=== PATIENT | female | born 1950 | race Caucasian/White ===

== ENCOUNTER 2017-10-16 10:20 | Emergency (ER) | payer MEDICARE, BC ==
[~2017-10-16] VITALS: Ht 165.1 cm; Wt 68.0 kg
[~2017-10-16 10:20] MED LIST: CALC667T PO; FURO20 PO; LISI10; LORT5TAB PO; LORTA5 PO
[2017-10-16 10:27] VITALS: BP 121/59; PULSE 66; RESP 18; TEMP 98.6; O2SAT 98
[2017-10-16 10:30] VITALS: BP 121/59; PULSE 65; RESP 18; TEMP 98.6; O2SAT 98
--- NOTE | 2017-10-16 10:40 | PD ---
HPI Chief Complaint: Fall Time Seen by Provider: 10:36 Travel History International Travel<30 days: No Contact w/Intl Traveler<30days: No Traveled to known affect area: No History of Present Illness HPI 67-year-old female came to the emergency room brought by her son with history of a fall and head and facial injury. Patient says that she was trying to take off her compression stockings while she was sitting at the edge of the bed. She lost control and tumbled forwards. Her head and face hit the concrete floor. No history of loss of consciousness. There was bleeding from the face. Son called EMS and patient was brought in. She was complaining of some neck pain and a c-collar was put on. Patient says she has past history of cervical disc protrusion and cervical radiculopathy. She usually has some baseline pain but this pain is worse than her usual. Patient is on a number of pain medication and sedatives on a daily basis. She is not on any blood thinners. [facility] Past Medical History Narrative Medical List of her past medical, surgical, social and family history is reviewed from the nursing note. 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) Cardiovascular Problems: Yes (ASCENDING AORTIC ANEURYSM 4.6) COPD: No Diabetes: Yes Endocrine: Yes Hepatitis: No Hiatal Hernia: No Hypertension: Yes Implanted Vascular Access Dvce: Yes Musculoskeletal: Yes (ARTHRITIS) Neurologic: No Psychiatric: No Reproductive: No Respiratory: Yes (HX ASTHMA, TWO EPISODE SINCE 2003) Renal Failure: Yes Sleep Apnea: No Thyroid Disease: No Tetanus Vaccination: Unknown Influenza Vaccination: Yes ?: Not Past Surgical History Abdominal Surgery: Yes (PANCREATIC SURGERY) Body Medical Devices: RIGHT CHEST VAS CATH Cardiac Surgery: No Ear Surgery: No Endocrine Surgery: Yes (CYSTS ON PANCREAS/SPLEENECTOMY) Eye Surgery: No Genitourinary Surgery: No Gynecologic Surgery: Yes (DRAINAGE OF VAGINAL CYST) Neurologic Surgery: Yes (C5-C6 FUSION) Oral Surgery: Yes (ORAL CYST) Pacemaker: No Thoracic Surgery: Yes (VAS CATH) Other Surgery: Yes Social History Alcohol Use: No Tobacco Use: No (QUIT 28 YEARS AGO) Substance Use: No Allergies-Medications (Allergen,Severity, Reaction): Coded Allergies: butorphanol (Unverified Allergy, Severe, "NERVE ENDING ON FIRE", 04/24/17) ketorolac (Unverified Allergy, Severe, "NERVE ON FIRE", 04/24/17) Comments List of her allergies reviewed from the nursing note. Reported Meds & Prescriptions Reported Meds & Active Scripts Active Bacitracin Topical 500 Unit/Gm Oint 1 Applic TOPICAL BID Reported Calcium Acetate 668 Mg Tab 668 Mg PO TID WITH MEALS WITH SNACK WELL Lasix 20 Mg Tab (Furosemide) 20 Mg Tab 40 Mg PO DAILY Lortab 5/500 (Acetaminophen/Hydrocodone Bitart) 5 Mg/500 Mg Tab 1-2 Tab PO Q4HPRN Hydrocodone/Acetaminophen 5 mg/325 mg 1 Tab Tab 1-2 Tab PO Q4HPRN Prinivil 10 mg (Lisinopril) 10 Mg Tab 20 Mg .XX DAILY Narrative Medication List of her home medications reviewed from the nursing note. Review of Systems Except as stated in HPI: all other systems reviewed are Neg Physical Exam Narrative GENERAL: Awake, alert, moderate distress, c-collar SKIN: Focused skin assessment warm/dry. HEAD: Stellate mid forehead laceration that is oozing blood. EYES: Pupils equal and round. No scleral icterus. No injection or drainage. ENT: No nasal bleeding or discharge. Mucous membranes pink and moist. The bridge of the nose has a small laceration. There is some facial swelling. NECK: Trachea midline. No JVD. CARDIOVASCULAR: Regular rate and rhythm. No murmur appreciated. RESPIRATORY: No accessory muscle use. Clear to auscultation. Breath sounds equal bilaterally. GASTROINTESTINAL: Abdomen soft, non-tender, nondistended. Hepatic and splenic margins not palpable. MUSCULOSKELETAL: No obvious deformities. No clubbing. No cyanosis. No edema. NEUROLOGICAL: Awake and alert. No obvious cranial nerve deficits. Motor grossly within normal limits. Normal speech. PSYCHIATRIC: Appropriate mood and affect; insight and judgment normal. Data Data Last Documented VS Orders Orders Ct Brain W/O Iv Contrast(Rout) (10/16/17 ) Ct Cerv Spine W/O Contrast (10/16/17 ) Tetanus/Diphtheria Tox Adult (Tetanus/Di (10/16/17 11:00) Ice / Cold Pack PRN (10/16/17 11:00) Acetaminophen (Tylenol) (10/16/17 11:00) Lidocai-Epi 1%-1:100,000 Inj (Xylocaine- (10/16/17 11:15) Lidocaine Pf 1% Inj (Xylocaine-Mpf 1% In (10/16/17 12:01) Ed Discharge Order (10/16/17 12:20) Lidocaine Pf 1% Inj (Xylocaine-Mpf 1% In (10/16/17 13:00) MDM Medical Decision Making Medical Screen Exam Complete: Yes Emergency Medical Condition: Yes Medical Record Reviewed: Yes Differential Diagnosis Intracranial bleed, nasal bone fracture, facial laceration Narrative Course 11:[address] scan of her head and cervical spine. Patient will be given tetanus shot and Tylenol for the pain. If the CT scan is negative my PA will repair the laceration and patient will be discharged home. 11:[address] scan reports of back and negative for any acute injury. Once the laceration is repaired patient will be discharged home. Please refer to the PAs note regarding the laceration repair. Procedures EKG Prior to Arrival: No Diagnosis Primary Impression: Fall Qualified Codes: W19.XXXA - Unspecified fall, initial encounter Additional Impressions: Facial injury Qualified Codes: S09.93XA - Unspecified injury of face, initial encounter Facial laceration Qualified Codes: S01.81XA - Laceration without foreign body of other part of head, initial encounter Neck strain Qualified Codes: S16.1XXA - Strain of muscle, fascia and tendon at neck level , initial encounter Additional Instructions: Return to the ER if condition worsens or any other new concerns. The stitches need to come out in 7-10 days. Apply the antibiotic ointment until the stitches come out. Return to ER to get the stitches taken out. Return sooner if symptoms worsen or any signs of infection. Med/Other Pt SpecificInfo: Prescription(s) given Scripts Bacitracin Topical (Bacitracin Topical) 500 Unit/Gm Oint 1 APPLIC TOPICAL BID for Infection, #30 GM 0 Refills Prov: Christiane Gramajo MD 10/16/17 Disposition: 01 DISCHARGE HOME Condition: Stable Christiane Gramajo MD Oct 16, 2017 10:40
[2017-10-16] MEDS ORDERED: TETANUS/DIPHTHERIA TOXOID ADULT 0.5 ML VIAL IM ONE (11:00)
[2017-10-16] MEDS ORDERED: ACETAMINOPHEN 325 MG TAB PO ONE (11:00)
[2017-10-16] MEDS ORDERED: LIDOCAINE 1%/EPINEPHrine 1:100,000 SOLN 20 ML VIAL INFIL ONE (11:15)
--- NOTE | 2017-10-16 11:31 | RADRPT ---
EXAM DATE/TIME: 10/16/2017 11:17 [facility] COMPARISON: No previous studies available for comparison. INDICATIONS : Fall RADIATION DOSE: 35.54 CTDIvol (mGy) MEDICAL HISTORY : Ascending aortic aneurysm SURGICAL HISTORY : C5, C6 fusion ENCOUNTER: Initial ACUITY: 1 day PAIN SCALE: 7/10 LOCATION: Bilateral cranial TECHNIQUE: Multiple contiguous axial images were obtained of the head. Using automated exposure control and adj ustment of the mA and/or kV according to patient size, radiation dose was kept as low as reasonably a chievable to obtain optimal diagnostic quality images. DICOM format image data is available electro nically for review and comparison. FINDINGS: There is patchy mild diminished attenuation and deep white matter structures which appears benign. Ba alannah ganglia calcifications on the right. No evidence of intracranial hemorrhage or mass. Nothing to s uggest acute infarction. Extracranial structures are benign and intact. CONCLUSION: No acute intracranial injury Beau Abebe MD on October 16, 2017 at 11:26 Board Certified Radiologist. This report was verified electronically.
--- NOTE | 2017-10-16 11:53 | RADRPT ---
EXAM DATE/TIME: 10/16/2017 11:17 [facility] COMPARISON: No previous studies available for comparison. INDICATIONS : Slipped and fell, complains of neck pain. RADIATION DOSE: 21.42 CTDIvol (mGy) MEDICAL HISTORY : Ascending aortic aneurysm SURGICAL HISTORY : C5, C6 fusion ENCOUNTER: Initial ACUITY: 1 day PAIN SCALE: 7/10 LOCATION: Bilateral neck TECHNIQUE: Volumetric scanning of the cervical spine was performed. Multiplanar reconstructions in the sagittal, coronal and oblique axial planes were performed. Using automated exposure control and adjustment o f the mA and/or kV according to patient size, radiation dose was kept as low as reasonably achievable to obtain optimal diagnostic quality images. DICOM format image data is available electronically f or review and comparison. FINDINGS: There has been previous C5-6 fusion with solid bony fusion present. There is moderate anterolisthesis of C4 relative to C5 on the order of 4-5 mm. There is severe diffuse degenerative change with disc s pace narrowing most significantly C6-7 and to a lesser degree at other levels. There is no evidence o f fracture. No destructive changes are noted. No evidence of paraspinal hematoma At C3-4, moderate asymmetrically right-sided and plate and uncovertebral osteophytic spurring is pres ent with superimposed facet arthropathy determining 2 asymmetric right-sided foraminal stenosis. Johana l appears adequate. At C4-5, spondylolisthesis is present protruding to mild canal stenosis and mild asymmetrically right-sided foraminal stenosis. At C5-6, bony fusion is noted. There is a moderately large right paracentral dorsal bone spur protrud ing into the right lateral recess. Asymmetrically right-sided foraminal stenosis also present. At C6-7, broad undulating dorsal disc protrusion is present, mildly asymmetric to the left with mild canal stenosis and bilateral foraminal stenosis present. CONCLUSION: No acute bony injury in the cervical spine. Prominent degenerative changes and moderate C4-5 spondylo listhesis above previous fusion. Beau Abebe MD on October 16, 2017 at 11:43 Board Certified Radiologist. This report was verified electronically.
[2017-10-16] MEDS ORDERED: BACI500O9 TOPICAL (11:57)
[2017-10-16] MEDS ORDERED: LIDOCAINE HCL 1% PF 30 ML VIAL ONE (12:01)
--- NOTE | 2017-10-16 12:44 | PD ---
Physical Exam Time Seen by Provider: 12:00 Data Data Last Documented VS Vital Signs Date Time Temp Pulse Resp B/P (MAP) Pulse Ox O2 Delivery O2 Flow Rate FiO2 10/16/17 10:30 98.6 65 18 121/59 (79) 98 Room Air Orders Orders Ct Brain W/O Iv Contrast(Rout) (10/16/17 ) Ct Cerv Spine W/O Contrast (10/16/17 ) Tetanus/Diphtheria Tox Adult (Tetanus/Di (10/16/17 11:00) Ice / Cold Pack PRN (10/16/17 11:00) Acetaminophen (Tylenol) (10/16/17 11:00) Lidocai-Epi 1%-1:100,000 Inj (Xylocaine- (10/16/17 11:15) Lidocaine Pf 1% Inj (Xylocaine-Mpf 1% In (10/16/17 12:01) Ed Discharge Order (10/16/17 12:20) MDM Medical Record Reviewed: Yes Supervised Visit with SANDRA: No Narrative Course This patient presents with complex facial laceration was assessed repair. She verbalized consent for laceration repair. Procedures Procedure Narrative LACERATION LOCATION: Forehead LENGTH 3 cm NUMBER OF STITCHES/CHIKIS: 14 REPAIR: The area of the laceration was prepped with Betadine and sterilely draped. The laceration was infiltrated with 1% lidocaine. The wound was copiously irrigated and explored without evidence of foreign body, tendon injury or neurovascular injury. The wound was closed using 6-0 prolene simple interrupted. This was a [single layer repair. A sterile dressing was applied. The patient was advised to keep the dressing clean and dry. Patient tolerated the procedure well. LACERATION LOCATION: nose LENGTH 1 cm NUMBER OF STITCHES/CHIKIS: 2 REPAIR: The area of the laceration was prepped with Betadine and sterilely draped. The laceration was infiltrated with 1% lidocaine. The wound was copiously irrigated and explored without evidence of foreign body, tendon injury or neurovascular injury. The wound was closed using 6-0 prolene simple interrupted. This was a [single layer repair. A sterile dressing was applied. The patient was advised to keep the dressing clean and dry. Patient tolerated the procedure well. Diagnosis Primary Impression: Fall Qualified Codes: W19.XXXA - Unspecified fall, initial encounter Additional Impressions: Facial laceration Qualified Codes: S01.81XA - Laceration without foreign body of other part of head, initial encounter Facial injury Qualified Codes: S09.93XA - Unspecified injury of face, initial encounter Neck strain Qualified Codes: S16.1XXA - Strain of muscle, fascia and tendon at neck level , initial encounter Additional Instruction: Return to the ER if condition worsens or any other new concerns. The stitches need to come out in 7-10 days. Apply the antibiotic ointment until the stitches come out. Return to ER to get the stitches taken out. Return sooner if symptoms worsen or any signs of infection. Scripts Bacitracin Topical (Bacitracin Topical) 500 Unit/Gm Oint 1 APPLIC TOPICAL BID for Infection, #30 GM 0 Refills Prov: Christiane Gramajo MD 10/16/17 Disposition: 01 DISCHARGE HOME Condition: Stable Mickey Izaguirre Oct 16, 2017 12:44
[2017-10-16] MEDS ORDERED: LIDOCAINE HCL 1% PF 30 ML VIAL INFIL ONE (13:00)
== END 2017-10-16 13:46 | disposition home or self-care (01) ==
LOC: NEPE 10:20
DX: S01.81XA Laceration without foreign body of other part of head, initial encounter (principal); S16.1XXA Strain of muscle, fascia and tendon at neck level, initial encounter; W06.XXXA Fall from bed, initial encounter; Y93.89 Activity, other specified; Z23 Encounter for immunization
CPT/HCPCS: 12013; 70450; 72125; 90471; 90714

== ENCOUNTER 2017-10-24 09:53 | Emergency (ER) | payer MEDICARE, BC ==
[~2017-10-24] VITALS: Ht 165.1 cm; Wt 70.0 kg
[~2017-10-24 09:53] MED LIST changes: +BACI500O9 TOPICAL
[2017-10-24 09:55] VITALS: BP 118/59; PULSE 73; RESP 14; TEMP 98.3; O2SAT 97
[2017-10-24] MEDS ORDERED: POLY10O EACH EYE (11:08)
--- NOTE | 2017-10-24 11:12 | PD ---
HPI Chief Complaint: Wound/Suture/Staple Re-Check Time Seen by Provider: 11:07 Travel History International Travel<30 days: No Contact w/Intl Traveler<30days: No Traveled to known affect area: No History of Present Illness HPI This is a 67-year-old female who presents for suture removal. The patient was seen here in October 16 with facial lacerations which were repaired with sutures. She has no complaints in regards to the wounds. She has had some itchiness and drainage from both eyes for the past few days. Symptoms are mild , no aggravating factors. She thought that maybe she got some of the ointment into the eyes but she has been conscientious to avoid that and so she does not believe that that is the issue. She endorses little bit of crusting in the mornings in both eyes. She does not wear contacts. Denies any cough, congestion, sore throat. No other complaints. PFSH Past Medical History 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) Cardiovascular Problems: Yes (ASCENDING AORTIC ANEURYSM 4.6) COPD: No Diabetes: Yes Endocrine: Yes Hepatitis: No Hiatal Hernia: No Hypertension: Yes Implanted Vascular Access Dvce: Yes Musculoskeletal: Yes (ARTHRITIS) Neurologic: No Psychiatric: No Reproductive: No Respiratory: Yes (HX ASTHMA, TWO EPISODE SINCE 2003) Renal Failure: Yes Sleep Apnea: No Thyroid Disease: No ?: Not Past Surgical History Abdominal Surgery: Yes (PANCREATIC SURGERY) Body Medical Devices: RIGHT CHEST VAS CATH Cardiac Surgery: No Ear Surgery: No Endocrine Surgery: Yes (CYSTS ON PANCREAS/SPLEENECTOMY) Eye Surgery: No Genitourinary Surgery: No Gynecologic Surgery: Yes (DRAINAGE OF VAGINAL CYST) Neurologic Surgery: Yes (C5-C6 FUSION) Oral Surgery: Yes (ORAL CYST) Pacemaker: No Thoracic Surgery: Yes (VAS CATH) Other Surgery: Yes Social History Alcohol Use: No Tobacco Use: No (QUIT 28 YEARS AGO) Substance Use: No Allergies-Medications (Allergen,Severity, Reaction): Coded Allergies: butorphanol (Unverified Allergy, Severe, "NERVE ENDING ON FIRE", 04/24/17) ketorolac (Unverified Allergy, Severe, "NERVE ON FIRE", 04/24/17) Reported Meds & Prescriptions Reported Meds & Active Scripts Active Polytrim Opth Drops (Polymyxin/Trimethoprim Sulfate) 10,000-0.1 Unit/Ml-% Soln 1 Drop EACH EYE Q6HR 7 Days Bacitracin Topical 500 Unit/Gm Oint 1 Applic TOPICAL BID Reported Calcium Acetate 668 Mg Tab 668 Mg PO TID WITH MEALS WITH SNACK WELL Lasix 20 Mg Tab (Furosemide) 20 Mg Tab 40 Mg PO DAILY Lortab 5/500 (Acetaminophen/Hydrocodone Bitart) 5 Mg/500 Mg Tab 1-2 Tab PO Q4HPRN Hydrocodone/Acetaminophen 5 mg/325 mg 1 Tab Tab 1-2 Tab PO Q4HPRN Prinivil 10 mg (Lisinopril) 10 Mg Tab 20 Mg .XX DAILY Review of Systems General / Constitutional: No: Fever, Chills Eyes: Positive: Tearing, Other (itchiness) HENT: No: Rhinitis Respiratory: No: Cough Skin: Positive Other (positive for laceration, sutures) Physical Exam Narrative GENERAL: Well-developed well-nourished female in no acute distress SKIN: Warm and dry. Well healing forehead and nasal lacerations. No wound dehiscence or erythema. HEAD: Atraumatic. Normocephalic. EYES: Pupils equal and round mild sconjunctival injection noted bilaterally. ENT: No nasal bleeding or discharge. Mucous membranes pink and moist. NECK: Trachea midline. No JVD. Data Data Last Documented VS Vital Signs Date Time Temp Pulse Resp B/P (MAP) Pulse Ox O2 Delivery O2 Flow Rate FiO2 10/24/17 09:55 98.3 73 14 118/59 (78) 97 MDM Medical Decision Making Medical Screen Exam Complete: Yes Emergency Medical Condition: Yes Medical Record Reviewed: Yes Differential Diagnosis Suture removal, wound dehiscence, infected wound Narrative Course The sutures were removed without incident. The patient will be discharged with Polytrim for conjunctivitis. Diagnosis Primary Impression: Visit for suture removal Additional Impression: Conjunctivitis Additional Instructions: Medication as prescribed. Follow-up with primary care physician as needed. Med/Other Pt SpecificInfo: Prescription(s) given Scripts Polymyxin B-Trimethoprim Opth Drops (Polytrim Opth Drops) 10,000-0.1 Unit/Ml-% Soln 1 DROP EACH EYE Q6HR for Mgmt Bacterial Infection for 7 Days, #1 BOTTLE 0 Refills Prov: Ansley Oroczo MD 10/24/17 Disposition: 01 DISCHARGE HOME Condition: Stable Mickey Izaguirre Oct 24, 2017 11:12
== END 2017-10-24 11:22 | disposition home or self-care (01) ==
LOC: NEPK 09:53
DX: Z48.02 Encounter for removal of sutures (principal); H10.9 Unspecified conjunctivitis; J45.909 Unspecified asthma, uncomplicated; M19.90 Unspecified osteoarthritis, unspecified site; I12.9 Hypertensive chronic kidney disease with stage 1 through stage 4 chronic kidney disease, or unspecified chronic kidney disease; E11.22 Type 2 diabetes mellitus with diabetic chronic kidney disease; N18.9 Chronic kidney disease, unspecified; Z87.891 Personal history of nicotine dependence; Z79.899 Other long term (current) drug therapy
CPT/HCPCS: 99281

== ENCOUNTER 2017-11-05 09:43 | Emergency (ER) | payer MEDICARE, BC ==
[~2017-11-05] VITALS: Ht 165.1 cm; Wt 66.0 kg
[~2017-11-05 09:43] MED LIST changes: +POLY10O EACH EYE
[2017-11-05 10:07] VITALS: BP 149/72; PULSE 85; RESP 18; TEMP 100
[2017-11-05] MEDS ORDERED: CALC1CAP PO (10:32)
[2017-11-05] MEDS ORDERED: FURO1TAB62 PO (10:32)
[2017-11-05] MEDS ORDERED: KETO0.02 EACH EYE (10:42)
[2017-11-05] MEDS ORDERED: ERYTOIN10 EACH EYE (10:42)
--- NOTE | 2017-11-05 10:55 | PD ---
HPI Chief Complaint: Eye Problems/Injury Time Seen by Provider: 10:24 Travel History International Travel<30 days: No Contact w/Intl Traveler<30days: No Traveled to known affect area: No History of Present Illness HPI 67-year-old female presents to the emergency room for evaluation of bilateral eye itchiness, drainage, crustiness, grittiness, and irritation for the past 2 weeks. Symptoms started shortly after she fell and sustained lacerations to her forehead that were repaired in the ED. There was no evidence of infection in the wounds when she came to have the sutures removed. States she occasionally wakes up with her eyes crusted shut. States she has occasional blurry vision that clears when she rubs the drainage out of her eyes. She has been trying srde-oyy-gkhqnie pinkeye drops that seem to be helping better than the antibiotic drops that she was taking. She denies any significant eye pain, headaches, photophobia, or fevers. She does report occasional chills. She has not been able to get in to see her primary care physician. She does not wear contacts. PFSH Past Medical History 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) Cardiovascular Problems: Yes (ASCENDING AORTIC ANEURYSM 4.6) COPD: No Diabetes: Yes (use to be ) Endocrine: Yes Hepatitis: No Hiatal Hernia: No Hypertension: Yes Implanted Vascular Access Dvce: Yes Musculoskeletal: Yes (ARTHRITIS) Neurologic: No Psychiatric: No Reproductive: No Respiratory: Yes (HX ASTHMA, TWO EPISODE SINCE 2003) Renal Failure: Yes Sleep Apnea: No Thyroid Disease: No ?: Not Past Surgical History Abdominal Surgery: Yes (PANCREATIC SURGERY) Body Medical Devices: RIGHT CHEST VAS CATH Cardiac Surgery: No Ear Surgery: No Endocrine Surgery: Yes (CYSTS ON PANCREAS/SPLEENECTOMY) Eye Surgery: No Genitourinary Surgery: No Gynecologic Surgery: Yes (DRAINAGE OF VAGINAL CYST) Neurologic Surgery: Yes (C5-C6 FUSION) Oral Surgery: Yes (ORAL CYST) Pacemaker: No Thoracic Surgery: Yes (VAS CATH) Other Surgery: Yes Social History Alcohol Use: No Tobacco Use: No (QUIT 28 YEARS AGO) Substance Use: No Allergies-Medications (Allergen,Severity, Reaction): Coded Allergies: butorphanol (Unverified Allergy, Severe, "NERVE ENDING ON FIRE", 11/05/17) ketorolac (Unverified Allergy, Severe, "NERVE ON FIRE", 11/05/17) Reported Meds & Prescriptions Reported Meds & Active Scripts Active ZyrTEC Itchy Eye Opth Drops (Ketotifen Opth Drops) 0.025% Drops 1 Drop EACH EYE BID PRN Erythromycin Opth Oint 5 Mg/Gm Oint 1 Applic EACH EYE QID Reported Calcium Acetate (Phosphate Binder) 667 Mg Cap 667 Mg PO TID Lasix (Furosemide) 20 Mg Tab 20 Mg PO TID Review of Systems Except as stated in HPI: all other systems reviewed are Neg Physical Exam Narrative GENERAL: Well-nourished, well-developed female no acute distress. Afebrile. Ambulatory. SKIN: Focused skin assessment warm/dry. HEAD: Normocephalic. EYES: PERRL, EOMI without pain, no discharge. No scleral icterus. There is very mild injection of bilateral eyes without chemosis. No periorbital edema or erythema. Visual acuity is 20/40 in the left and 20/25 in the right. Fluorescein staining reveals 1 mm superficial corneal abrasion to the left eye at the 3 o'clock position. Negative Meagan sign. No foreign body. No photophobia. NECK: Supple, trachea midline. No JVD or lymphadenopathy. CARDIOVASCULAR: Regular rate and rhythm without murmurs, gallops, or rubs. RESPIRATORY: Breath sounds equal bilaterally. No accessory muscle use. PSYCHIATRIC: No delusional thought processes. No hallucinations. Data Data Last Documented VS Vital Signs Date Time Temp Pulse Resp B/P (MAP) Pulse Ox O2 Delivery O2 Flow Rate FiO2 11/05/17 10:07 100.0 85 18 149/72 (97) [facility] Medical Decision Making Medical Screen Exam Complete: Yes Emergency Medical Condition: Yes Medical Record Reviewed: Yes Differential Diagnosis Conjunctivitis, viral conjunctivitis, allergic conjunctivitis Narrative Course 67-year-old female presents to the emergency room for evaluation of bilateral eye redness, drainage, grittiness, and irritation for the past 2 weeks. Patient came for same symptoms about 1.5 weeks ago and was discharged with eyedrops that have not been helping. Denies any significant headache, changes in visual acuity, or photophobia. She has been using ayyl-jub-ilowbxk pinkeye drops that seems to be helping more than her prescription eyedrops. Physical exam reveals PERRL, EOMI without pain, no discharge. No scleral icterus. There is very mild injection of bilateral eyes without chemosis. No periorbital edema or erythema. Visual acuity is 20/40 in the left and 20/25 in the right. Fluorescein staining reveals 1 mm superficial corneal abrasion to the left eye at the 3 o'clock position. Negative Meagan sign. No foreign body. No photophobia. I suspect the abrasion is due to patient rubbing her eyes so much. She is well appearing overall. Will be treated with a different prescription antibiotic though I suspect there is either viral or allergic component given duration and mildness of symptoms. Patient also has eye makeup on which may be causing reinfection. She was told to throw away her eye makeup and not wear anymore until infection resolves. Patient was told to follow-up with pyrometallurgical engineer if they persist or return for worsening symptoms. She understands and agrees to plan. Diagnosis Primary Impression: Conjunctivitis of both eyes Qualified Codes: H10.33 - Unspecified acute conjunctivitis, bilateral Referrals: Tami Fabian MD Primary Care Physician Additional Instructions: Rest and drink plenty of fluids. Apply eyedrops as needed for eye itchiness. Apply ointment as directed. Follow-up with pyrometallurgical engineer. Return to the emergency room for worsening symptoms. Med/Other Pt SpecificInfo: Prescription(s) given Scripts Ketotifen Opth Drops (ZyrTEC Itchy Eye Opth Drops) 0.025% Drops 1 DROP EACH EYE BID Y for ALLERGIES, #1 BOTTLE 0 Refills Prov: Oli Roman MD 11/05/17 Erythromycin Opth Oint (Erythromycin Opth Oint) 5 Mg/Gm Oint 1 APPLIC EACH EYE QID for Infection, #1 TUBE 0 Refills Prov: Oli Roman MD 11/05/17 Disposition: DISCHARGE HOME Condition: Stable Shiloh Tierney Nov 05, 2017 10:55
== END 2017-11-05 12:08 | disposition home or self-care (01) ==
LOC: NEPD 09:43
DX: H10.33 Unspecified acute conjunctivitis, bilateral (principal)
CPT/HCPCS: 99283

== ENCOUNTER 2018-08-03 19:21 | Inpatient (IN) ==
[2018-08-03] MEDS ORDERED: Sodium Chlor 0.9% Inj 500 ML IV.SIG SCH (20:00)
--- NOTE | 2018-08-03 20:13 | ED ---
HPI General Chief complaint: Weakness Stated complaint: Weakness Time Seen by Provider: 08/03/18 19:26 Source: patient and EMS Mode of arrival: EMS Limitations: no limitations History of Present Illness HPI narrative: 68-year-old female with end-stage kidney disease, hemodialysis dependent was brought in by EMS from her home. As per EMS the son gave history since he called 911. As per him patient has been altered mental status and confused. She has been leaving the house and falling frequently. She has missed past several dialysis appointments. Her last dialysis was more than 1 week ago. Patient told me that her bushel worker is Dr. Aguilar. Patient is answering questions however and is oriented in time place and person. There is also a concern by her son of prescription narcotic abuse. Patient was tachycardic upon arrival. She appears very disheveled and unkempt. Her mouth is very dry which is preventing her to talk normal. Patient says that she has not eaten much for past few days. As per the paramedics the condition of her apartment was very nice and clean. Also the patient tells me that at this point her bushel worker told her that he will not dialyze her in the clinic but has to be dialyzed in the hospital. She has chronic joint pains from arthritis especially of her right knee. Patient says that her right knee needs to be replaced per the orthopedist has told her that she is a high risk for infection. Related Data Home Medications Medication Instructions Recorded Confirmed calcium acetate mg PO TID 05/06/18 dextroamphetamine-amphetamine mg PO BID 05/06/18 [Adderall] furosemide [Lasix] mg PO DAILY 05/06/18 morphine [MorphaBond ER] 30 mg PO Q12H 05/06/18 05/06/18 oxycodone-acetaminophen [Percocet] tab PO Q6H PRN 05/06/18 escitalopram oxalate [Lexapro] mg PO DAILY 05/30/18 Allergies Allergy/AdvReac Type Severity Reaction Status Date / Time butorphanol Allergy Severe "NERVE Verified 05/30/18 10:33 ENDING ON FIRE" ketorolac Allergy Severe "NERVE ON Verified 05/30/18 10:33 FIRE" Review of Systems ROS: all other systems reviewed are negative [facility] Medical History Medical History Acute carpal tunnel syndrome (Acute) Arthritis (Acute) Diabetes (Acute) ESRD (end stage renal disease) (Acute) MRSA (methicillin resistant staph aureus) culture positive (Acute) Pseudomonas infection (Acute) Renal dialysis status (Acute) Social History Social History Substance History: No History of Abuse Second Hand Smoke Exposure: No Smoking Status: Former smoker Tobacco Type: Cigarettes How Often Do You Have a Drink Containing Alcohol: Never Immunization History Tetanus Immunization: >5 Years Exam Narrative Exam Narrative: GENERAL: Awake, alert, disheveled, unkempt, poor hygiene, moderate distress SKIN: Focused skin assessment warm/dry. Pale, poor skin hygiene, multiple abrasions of various stages of her left upper and left lower extremities HEAD: Atraumatic. Normocephalic. EYES: Pupils equal and round. No scleral icterus. No injection or drainage. ENT: No nasal bleeding or discharge. Dry mucous membrane, coated tongue NECK: Trachea midline. No JVD. CARDIOVASCULAR: Regular rate and rhythm. Tachycardia. No murmur appreciated. RESPIRATORY: No accessory muscle use. Clear to auscultation. Breath sounds equal bilaterally. GASTROINTESTINAL: Abdomen soft, non-tender, nondistended. Hepatic and splenic margins not palpable. MUSCULOSKELETAL: No obvious deformities. No clubbing. No cyanosis. No edema. Right knee swollen from chronic arthritis NEUROLOGICAL: Awake and alert. No obvious cranial nerve deficits. Motor grossly within normal limits. Normal speech. PSYCHIATRIC: Appropriate mood and affect; insight and judgment normal. Course Initial Documented Vital Signs Pulse Rate 116 H 08/03/18 19:26 Respiratory Rate 20 08/03/18 19:26 Blood Pressure 146/74 H 08/03/18 19:26 Pulse Oximetry 95 08/03/18 19:26 Last Documented Vital Signs Pulse Rate 118 H 08/03/18 19:33 Respiratory Rate 20 08/03/18 19:33 Blood Pressure 146/74 H 08/03/18 19:33 Pulse Oximetry 96 08/03/18 20:07 Critical Care Time Critical Care Time: Yes Total Critical Care Time: 45 Attestation: Aggregate critical care time was 45 minutes. Time to perform other separately billable procedures was not included in the critical care time. My time did not include minutes spent treating any other patients simultaneously or on activities that did not directly contribute to the patient's treatment. The services I provided to this patient were to treat and/or prevent clinically significant deterioration that could result in: Hyperkalemia, hyperkalemia correction, emergent dialysis, rhabdomyolysis I provided critical care services requiring my management, as noted below: Chart data review, documentation time, medication orders and management, vital sign assessments/reviewing monitor data, ordering and reviewing lab tests, ordering and interpreting/reviewing x-rays and diagnostic studies, care of the patient and discussion of the patient with the admitting physicians. Medical Decision Making MDM Narrative Medical decision making narrative: 8:12 PM patient is getting IV fluid bolus of 500 mL. Awaiting for blood test results, UA and chest x-ray. Have ordered a head CT as well. Patient will require admission. 9:38 PM blood test results are back and patient is acidotic and has hyperkalemia. I discussed the case with her bushel worker Dr. Aguilar who will come in to dialyze the patient. He recommended the patient to be admitted to the unit. I discussed the case with the hospitalist was accepted the patient. I started her on medications for hyperkalemia including sodium bicarb, calcium carbonate, insulin and D50. P.o. Kayexalate has been ordered as well. As per Dr. Aguilar patient has been very noncompliant with her dialysis and he is planning on discharging her from his service. She is getting IV fluid for the rhabdomyolysis. Lab Data Result diagrams: 08/03/18 19:50 08/03/18 19:50 Lab Results 08/03/18 08/03/18 08/03/18 Range/Units 19:50 19:50 19:50 WBC 9.0 (4.0-11.0) th/mm3 RBC 3.13 L (4.00-5.30) mil/mm3 Hgb 10.7 L (11.6-15.3) gm/dL Hct 32.2 L (35.0-46.0) % MCV 102.9 H (80.0-100.0) fL MCH 34.1 H (27.0-34.0) pg MCHC 33.2 (32.0-36.0) % RDW 14.7 (11.6-17.2) % Plt Count 242 (150-450) th/mm3 MPV 9.0 (7.0-11.0) fL Neut % (Auto) 73.8 H (16.0-70.0) % Lymph % (Auto) 13.1 (9.0-44.0) % [place] % (Auto) 12.5 H (0.0-8.0) % Eos % (Auto) 0.1 (0.0-4.0) % Baso % (Auto) 0.5 (0.0-2.0) % Neut # (Auto) 6.6 (1.8-7.7) th/mm3 Lymph # (Auto) 1.2 (1.0-4.8) th/mm3 [place] # (Auto) 1.1 H (0.0-0.9) th/mm3 Eos # (Auto) 0.0 (0.0-0.4) th/mm3 Baso # (Auto) 0.0 (0.0-0.2) th/mm3 WBC Differential . Differential Comment Auto diff final Sodium 135 L (136-145) meq/L Potassium 6.1 H (3.5-5.1) meq/L Chloride 100 (98-107) meq/L Carbon Dioxide 13.3 L (21.0-32.0) meq/L Anion Gap 22 H (5-15) meq/L BUN 104 H (7-18) mg/dL Creatinine 12.97 H* (0.50-1.00) mg/dL Estimated GFR 3 L (>89) mL/min Random Glucose 109 H (74-106) mg/dL Lactic Acid (0.4-2.0) mmol/L Calcium 8.4 L (8.5-10.1) mg/dL Magnesium 2.6 H (1.5-2.5) mg/dL Total Bilirubin 0.8 (0.2-1.0) mg/dL AST 173 H (15-37) U/L ALT 59 H (10-53) U/L Alkaline Phosphatase 95 (45-117) U/L Total Creatine Kinase Cancelled 7960 H CK-MB (CK-2) 77.4 H (0.5-3.6) ng/mL CK-MB (CK-2) % 1.0 (0.0-4.0) % Troponin I Cancelled 0.32 H Total Protein 8.5 H (6.4-8.2) g/dL Albumin 3.6 (3.4-5.0) g/dL Urine Color (Yellw/Straw) Urine Clarity (Clear) Urine pH (5.0-8.5) Ur Specific [place] (1.002-1.035) Urine Protein (Neg-Trace) mg/dL Urine Glucose (UA) (Negative) mg/dL Urine Ketones (Negative) mg/dL Urine Occult Blood (Negative) Urine Nitrate (Negative) Urine Bilirubin (Negative) Urine Urobilinogen (Less than 2) mg/dL Ur Leukocyte Esterase (Negative) Urine RBC (0-3) /hpf Urine WBC (0-5) /hpf Urine Bacteria (None) /hpf Micro UA Comment Ur Microscopic Review Urine Culture Comments 08/03/18 08/03/18 Range/Units 19:50 21:15 WBC (4.0-11.0) th/mm3 RBC (4.00-5.30) mil/mm3 Hgb (11.6-15.3) gm/dL Hct (35.0-46.0) % MCV (80.0-100.0) fL MCH (27.0-34.0) pg MCHC (32.0-36.0) % RDW (11.6-17.2) % Plt Count (150-450) th/mm3 MPV (7.0-11.0) fL Neut % (Auto) (16.0-70.0) % Lymph % (Auto) (9.0-44.0) % [place] % (Auto) (0.0-8.0) % Eos % (Auto) (0.0-4.0) % Baso % (Auto) (0.0-2.0) % Neut # (Auto) (1.8-7.7) th/mm3 Lymph # (Auto) (1.0-4.8) th/mm3 [place] # (Auto) (0.0-0.9) th/mm3 Eos # (Auto) (0.0-0.4) th/mm3 Baso # (Auto) (0.0-0.2) th/mm3 WBC Differential Differential Comment Sodium (136-145) meq/L Potassium (3.5-5.1) meq/L Chloride (98-107) meq/L Carbon Dioxide (21.0-32.0) meq/L Anion Gap (5-15) meq/L BUN (7-18) mg/dL Creatinine (0.50-1.00) mg/dL Estimated GFR (>89) mL/min Random Glucose (74-106) mg/dL Lactic Acid 1.7 (0.4-2.0) mmol/L Calcium (8.5-10.1) mg/dL Magnesium (1.5-2.5) mg/dL Total Bilirubin (0.2-1.0) mg/dL AST (15-37) U/L ALT (10-53) U/L Alkaline Phosphatase (45-117) U/L Total Creatine Kinase CK-MB (CK-2) (0.5-3.6) ng/mL CK-MB (CK-2) % (0.0-4.0) % Troponin I Total Protein (6.4-8.2) g/dL Albumin (3.4-5.0) g/dL Urine Color Yellow (Yellw/Straw) Urine Clarity Clear (Clear) Urine pH 5.0 (5.0-8.5) Ur Specific [place] 1.011 (1.002-1.035) Urine Protein 100 H (Neg-Trace) mg/dL Urine Glucose (UA) Negative (Negative) mg/dL Urine Ketones Negative (Negative) mg/dL Urine Occult Blood Large H (Negative) Urine Nitrate Negative (Negative) Urine Bilirubin Negative (Negative) Urine Urobilinogen Less than 2 (Less than 2) mg/dL Ur Leukocyte Esterase Negative (Negative) Urine RBC 9 H (0-3) /hpf Urine WBC 7 H (0-5) /hpf Urine Bacteria Few H (None) /hpf Micro UA Comment Cath-culture ind Ur Microscopic Review Not Reportable Urine Culture Comments Cath-cult indicated Imaging Data Radiologist's impression: Chest X-Ray 08/03/18 19:39 CONCLUSION: No evidence of acute cardiopulmonary disease. Head CT 08/03/18 19:41 CONCLUSION: 1. No acute intracranial abnormality demonstrated. 2. Chronic white matter changes are again seen. . ECG Data Attestation: I personally reviewed and interpreted this ECG as follows: Interpretation: Twelve-lead EKG was reviewed by me. Normal sinus rhythm, normal axis, tachycardia, nonspecific ST-T wave changes. Heart rate of 113 bpm per Discharge Plan Discharge Disposition Patient Disposition: 30 Still Patient Physicians Team ED Provider: Christiane Gramajo Primary Care Provider: Viri Clark Rxs /Orders / Referrals /Forms Prescriptions: No Action furosemide [Lasix] 20 mg Tablet PO DAILY RF: 0 calcium acetate 667 mg Capsule PO TID RF: 0 oxycodone-acetaminophen [Percocet] 10-325 mg Tablet PO Q6H PRN (Reason: Pain) RF: 0 dextroamphetamine-amphetamine [Adderall] 5 mg Tablet PO BID RF: 0 morphine [MorphaBond ER] 30 mg Tablet,Oral Only,Ext.Rel.12 Hr 30 mg PO Q12H RF: 0 escitalopram oxalate [Lexapro] 10 mg Tablet PO DAILY RF: 0 Discharge Interventions Interventions: Vital Signs Last Done: 08/03/18 19:33 Status ED Status: With Doctor
[2018-08-03 20:23] LABS: Baso % (Auto) 0.5 % (0.0-2.0); Eos % (Auto) 0.1 % (0.0-4.0); Hematocrit 32.2 % (35.0-46.0); Hemoglobin 10.7 gm/dL (11.6-15.3); Lymph # (Auto) 1.2 th/mm3 (1.0-4.8); Lymph % (Auto) 13.1 % (9.0-44.0); Mean Corpuscular HGB Conc 33.2 % (32.0-36.0); Mean Corpuscular Hemoglobin 34.1 pg (27.0-34.0); Mean Corpuscular Volume 102.9 fL (80.0-100.0); Mono # (Auto) 1.1 th/mm3 (0.0-0.9); Mono % (Auto) 12.5 % (0.0-8.0); Neut # (Auto) 6.6 th/mm3 (1.8-7.7); Neut % (Auto) 73.8 % (16.0-70.0); Platelet Count 242 th/mm3 (150-450); Red Blood Count 3.13 mil/mm3 (4.00-5.30); Red Cell Distribution Width 14.7 % (11.6-17.2)
--- NOTE | 2018-08-03 20:23 | CT ---
EXAM DATE: 08/03/2018 8:20 PM EST AGE/SEX: 68 years / Female INDICATIONS: Altered mental status and multiple falls. CLINICAL DATA: This is the patient's initial encounter. Patient reports that signs and symptoms have been present for 1 day and indicates a pain score of 4/10. MEDICAL/SURGICAL HISTORY: Diabetes. None. RADIATION DOSE: 56.35 CTDI (mGy) COMPARISON: [facility] [place], CT HEAD W/O CONTRAST, 05/06/2018. . TECHNIQUE: CT of the head without contrast. Using automated exposure control and adjustment of the mA and/or kV according to patient size, radiation dose was kept as low as reasonably achievable to ob tain optimal diagnostic quality images. DICOM format image data is available electronically for revi ew and comparison. FINDINGS: Cerebrum: The ventricles are normal for age. No evidence of midline shift, mass lesion, hemorrhage or acute infarction. No extraaxial fluid collections are seen. Chronic low-attenuation seen in the p eriventricular white matter. Posterior Fossa: The cerebellum and brainstem are intact. The 4th ventricle is midline. The cerebe llopontine angle is unremarkable. Extracranial: The visualized portion of the orbits is intact. Skull: The calvaria is intact. No evidence of skull fracture. CONCLUSION: 1. No acute intracranial abnormality demonstrated. 2. Chronic white matter changes are again seen. . Electronically signed by: Beau Galicia MD 08/03/2018 8:22 PM EST
--- NOTE | 2018-08-03 20:52 | XR ---
EXAM DATE: 08/03/2018 8:43 PM EST AGE/SEX: 68 years / Female INDICATIONS: Fever CLINICAL DATA: This is the patient's initial encounter. Patient reports that signs and symptoms have been present for 1 day and indicates a pain score of 0/10. MEDICAL/SURGICAL HISTORY: Diabetes mellitus type II. None. COMPARISON: No prior exams available for comparison. FINDINGS: A single AP view of the chest demonstrates the lungs to be symmetrically aerated without evidence of mass, infiltrate or effusion. The cardiomediastinal contours are unremarkable. Osseous structures a re intact. CONCLUSION: No evidence of acute cardiopulmonary disease. Electronically signed by: Beau Galicia MD 08/03/2018 8:51 PM EST
[2018-08-03 21:01] LABS: Albumin 3.6 g/dL (3.4-5.0); Anion Gap 22 meq/L (5-15); Aspartate Aminotransferase 173 U/L (15-37); Blood Urea Nitrogen 104 mg/dL (7-18); Calcium 8.4 mg/dL (8.5-10.1); Carbon Dioxide 13.3 meq/L (21.0-32.0); Chloride 100 meq/L (98-107); Glomerular Filtration Rate 3 mL/min (>89); Glucose,Random 109 mg/dL (74-106); Magnesium 2.6 mg/dL (1.5-2.5); Potassium 6.1 meq/L (3.5-5.1); Sodium 135 meq/L (136-145)
[2018-08-03 21:10] LABS: Alanine Aminotransferase 59 U/L (10-53); Alkaline Phosphatase 95 U/L (45-117); Creatine Kinase 7960 U/L (26-192); Total Protein 8.5 g/dL (6.4-8.2); Troponin I 0.32 ng/mL (0.02-0.05)
[2018-08-03] MEDS ORDERED: Dextrose 50% in Water 50 ML Vial IV.PUSH ONE (21:13)
[2018-08-03] MEDS ORDERED: Calcium Chloride Inj 1 GM/10 ML Syringe IV.PUSH ONE (21:13)
[2018-08-03] MEDS ORDERED: Sodium Bicarbonate 8.4% Inj 50 MEQ/50 ML Syringe IV.PUSH ONE (21:13)
[2018-08-03] MEDS ORDERED: Sodium Polystyrene Sulfonate/Sorbitol Liq 15 GM/60 ML UDC PO ONE (21:16)
[2018-08-03 21:23] LABS: Creatine Kinase MB 77.4 ng/mL (0.5-3.6)
[2018-08-03] MEDS ORDERED: Sod Chloride 0.9% Inj 1,000 ML IV.SIG SCH (21:30)
[2018-08-03 21:34] LABS: Bacteria,Urine Few /hpf; Bilirubin,Urine Negative (Negative); Clarity,Urine Clear (Clear); Color,Urine Yellow (Yellw/Straw); Glucose,Urine (UA) Negative (Negative); Leukocyte Esterase,Urine Negative (Negative); Nitrite,Urine Negative (Negative); Specific Gravity,Urine 1.011 (1.002-1.035)
[2018-08-03] MEDS ORDERED: Albumin Human 25% Inj 100 ML IV.SIG PRN (21:46)
[2018-08-03] MEDS ORDERED: Sod Chloride 0.9% Inj 1,000 ML IV.CONT PRN (21:46)
[2018-08-03] MEDS ORDERED: Gelatin 12 MM/7 MM Topical Foam TOPICAL PRN (21:46)
[2018-08-03] MEDS ORDERED: Heparin 10,000 UNITS/10 ML Vial (for IV use) OTHER PRN (21:46)
[2018-08-03] MEDS ORDERED: Sod Chloride 0.9% Inj 1,000 ML OTHER PRN ×2 (21:46)
[2018-08-03] MEDS ORDERED: Bisacodyl 10 MG Supp RECTAL PRN (21:49)
[2018-08-03] MEDS ORDERED: Acetaminophen 325 MG Tablet PO PRN (21:49)
--- NOTE | 2018-08-03 21:51 | P.HPIM ---
History of Present Illness Primary Care Physician: Viri Clark MD History of Present Illness: This is a 68-year-old female with a PMH of HTN, ESRD on HD M/W/ and Narcotic Dependence who was brought to the ER by EMS for AMS. Per report, Son called EMS due to worsening mental status and recurrent falls, w/ concern for overmedication of her prescribed narcotics. Pt confused, but able to provide some history. Tells me she follows w/ Dr. Aguilar as outpatient, but has missed last 5 dialysis sessions because "I fell asleep". Denies any complaints at this time except for pain "all over", requesting her home pain medications. On arrival, BP 146/74, HR 118, O2 sat 96% on RA. CBC essentially unremarkable. K + 6.1. Creatinine 12.97. CPK 7960. Troponin 0 0.32. UA negative for UTI. CXR with no acute findings. CT Head with no acute findings. Dr. Aguilar contacted by ER physician, plan is for emergent dialysis this evening. - Diagnosis (1) Encephalopathy (2) ESRD (end stage renal disease) on dialysis (3) Hyperkalemia (4) Rhabdomyolysis (5) Elevated troponin (6) Narcotic dependence Review of Systems PAST FAMILY HISTORY: Unknown All other systems reviewed negative except as stated in HPI PMFSH - History History Provided By: Patient - Medical History Medical History: Medical History (Last Reviewed 08/03/18 @ 20:10 by Christiane Gramajo MD) Acute carpal tunnel syndrome Arthritis Diabetes ESRD (end stage renal disease) MRSA (methicillin resistant staph aureus) culture positive Pseudomonas infection Renal dialysis status - Tobacco History Second Hand Smoke Exposure: No Tobacco Use In Past 30 Days: No Smoking Status: Former smoker Tobacco Type: Cigarettes - Alcohol History How Often Do You Have a Drink Containing Alcohol: Never - Substance Use History Substance History: No History of Abuse - Immunization History Tetanus Immunization: >5 Years Medications and Allergies Active Medications: Active Medications Chlorhexidine Gluconate (Chlorhexidine 2% Cloth) 3 pack TOPICAL DAILY@0400 [facility] Stop: 08/09/18 03:59 Chlorhexidine Gluconate (Chlorhexidine 2% Cloth) 3 pack TOPICAL DAILY@0400 PRN PRN Reason: Extra cloth needed Stop: 08/09/18 03:59 Sodium Chloride (Ns Inj) 1,000 mls @ 1,000 mls/hr IV.SIG BOLUS PILO Stop: 08/03/18 22:29 Allergies Allergy/AdvReac Type Severity Reaction Status Date / Time butorphanol Allergy Severe "NERVE Verified 05/30/18 10:33 ENDING ON FIRE" ketorolac Allergy Severe "NERVE ON Verified 05/30/18 10:33 FIRE" Home Medications Medication Instructions Recorded Confirmed Type calcium acetate mg PO TID 05/06/18 History dextroamphetamine-amphetamine mg PO BID 05/06/18 History [Adderall] furosemide [Lasix] mg PO DAILY 05/06/18 History morphine [MorphaBond ER] 30 mg PO Q12H 05/06/18 05/06/18 History oxycodone-acetaminophen [Percocet] tab PO Q6H PRN 05/06/18 History escitalopram oxalate [Lexapro] mg PO DAILY 05/30/18 History Exam Vital signs: Vital Signs 08/03/18 19:26 08/03/18 19:33 08/03/18 20:07 Pulse Rate 116 H 118 H Respiratory Rate 20 20 Blood Pressure 146/74 H 146/74 H Pulse Oximetry 95 96 96 Intake & Output 08/03/18 08/03/18 08/04/18 06:59 18:59 06:59 Weight 70.76 kg Narrative: PE: GENERAL: Middle-aged white female in no acute distress, answering questions but appears confused at times. SKIN: Focused skin assessment warm and dry. Dry mucous membrane, lips dry/ cracked HEENT: PERRLA, EOMI. No scleral icterus or conjunctival pallor. No lid lag or facial droop. CARDIOVASCULAR: Regular rate and rhythm. No obvious murmurs to auscultation. No chest tenderness to palpation. RESPIRATORY: No obvious rhonchi or wheezing. Clear to auscultation. Breath sounds equal bilaterally. GASTROINTESTINAL: Abdomen soft, non-tender, nondistended. BS normal. MUSCULOSKELETAL: Extremities without clubbing, cyanosis, or edema. No obvious deformities. NEUROLOGICAL: Awake, alert and oriented to person, place, situation. No focal neurologic deficits. Moving both upper and lower extremities spontaneously. PSYCHIATRIC: Appropriate mood and affect. Insight and judgment normal. Results - Labs CBC & Chem 7: 08/03/18 19:50 08/03/18 19:50 Labs: Short CBC 08/03/18 Range/Units 19:50 WBC 9.0 (4.0-11.0) th/mm3 Hgb 10.7 L (11.6-15.3) gm/dL Hct 32.2 L (35.0-46.0) % Plt Count 242 (150-450) th/mm3 BMP 08/03/18 19:50 Sodium 135 L Potassium 6.1 H Chloride 100 Carbon Dioxide 13.3 L BUN 104 H Creatinine 12.97 H* Calcium 8.4 L Cardiac Enzymes 08/03/18 08/03/18 Range/Units 19:50 19:50 Total Creatine Kinase Cancelled 7960 H CK-MB (CK-2) 77.4 H (0.5-3.6) ng/mL Troponin I Cancelled 0.32 H Liver Function 08/03/18 Range/Units 19:50 Total Bilirubin 0.8 (0.2-1.0) mg/dL AST 173 H (15-37) U/L ALT 59 H (10-53) U/L Alkaline Phosphatase 95 (45-117) U/L Albumin 3.6 (3.4-5.0) g/dL Urine 08/03/18 Range/Units 21:15 Urine Color Yellow (Yellw/Straw) Urine Clarity Clear (Clear) Urine pH 5.0 (5.0-8.5) Ur Specific [place] 1.011 (1.002-1.035) Urine Protein 100 H (Neg-Trace) mg/dL Urine Glucose (UA) Negative (Negative) mg/dL - Imaging Impressions Chest X-Ray 08/03/18 19:39 CONCLUSION: No evidence of acute cardiopulmonary disease. Head CT 08/03/18 19:41 CONCLUSION: 1. No acute intracranial abnormality demonstrated. 2. Chronic white matter changes are again seen. . Caprini VTE Risk Assessment Caprini VTE Risk Assessment: No/Low Risk (score <= 1) Caprini Risk Assessment Model: Point Value = 1 Point Value = 2 Point Value = 3 Point Value = 5 Age 41-60 Minor surgery BMI > 25 kg/m2 Swollen legs Varicose veins or History of unexplained or recurrent spontaneous Oral contraceptives or hormone replacement Sepsis (< 1 month) Serious lung disease, including pneumonia (< 1 month) Abnormal pulmonary function Acute myocardial infarction Congestive heart failure (< 1 month) History of inflammatory bowel disease Medical patient at bed rest Age 61-74 Arthroscopic surgery Major open surgery (> 45 min) Laparoscopic surgery (> 45 min) Malignancy Confined to bed (> 72 hours) Immobilizing plaster cast Central venous access Age >= 75 History of VTE Family history of VTE Factor V Leiden Prothrombin [id number] Lupus anticoagulant Anticardiolipin antibodies Elevated serum homocysteine Heparin-induced thrombocytopenia Other congenital or acquired thrombophilia Stroke (< 1 month) Elective arthroplasty Hip, pelvis, or leg fracture Acute spinal cord injury (< 1 month) Prophylaxis Regimen: Total Risk Factor Score Risk Level Prophylaxis Regimen 0-1 Low Early ambulation 2 Moderate Order ONE of the following: *Sequential Compression Device (SCD) *Heparin 5000 units SQ BID 3-4 Higher Order ONE of the following medications: *Heparin 5000 units SQ TID *Enoxaparin/Lovenox 40 mg SQ daily (WT < 150 kg, CrCl > 30 mL/min) *Enoxaparin/Lovenox 30 mg SQ daily (WT < 150 kg, CrCl > 10-29 mL/min) *Enoxaparin/Lovenox 30 mg SQ BID (WT < 150 kg, CrCl > 30 mL/min) AND/OR *Sequential Compression Device (SCD) 5 or more Highest Order ONE of the following medications: *Heparin 5000 units SQ TID (Preferred with Epidurals) *Enoxaparin/Lovenox 40 mg SQ daily (WT < 150 kg, CrCl > 30 mL/min) *Enoxaparin/Lovenox 30 mg SQ daily (WT < 150 kg, CrCl > 10-29 mL/min) *Enoxaparin/Lovenox 30 mg SQ BID (WT < 150 kg, CrCl > 30 mL/min) AND *Sequential Compression Device (SCD) Assessment and Plan - Assessment (1) Encephalopathy Code(s): G93.40 - Encephalopathy, unspecified Status: Acute (2) ESRD (end stage renal disease) on dialysis Code(s): N18.6 - End stage renal disease; Z99.2 - Dependence on renal dialysis Status: Acute (3) Hyperkalemia Code(s): E87.5 - Hyperkalemia Status: Acute (4) Rhabdomyolysis Code(s): M62.82 - Rhabdomyolysis Status: Acute (5) Elevated troponin Code(s): R74.8 - Abnormal levels of other serum enzymes Status: Acute (6) Narcotic dependence Code(s): F11.20 - Opioid dependence, uncomplicated Status: Acute - Plan A/P: 1. Encephalopathy: likely secondary to significant uremia, compounded by narcotics, CT Head w/ no acute findings, images reviewed. Neuro checks, monitor closely, caution w/ narcotics-currently awake/alert/oriented but intermittent confusion, will start low-dose medications to avoid withdrawal. 2. ESRD on HD: M/W/F, non-compliant, missed last 5 sessions, following w/ Dr. Aguilar, plan for emergent dialysis this evening in light of significant uremia, will admit to ICU for close monitoring, repeat labs after dialysis. 3. Hyperkalemia: K+ 6.1, no acute EKG changes, s/p Ca/Insulin/D50, monitor closely on telemetry, repeat labs after dialysis. 4. Rhabdomyolysis: CPK 7980, s/p IVF in ER, will recheck CPK for trend, repeat after dialysis 5. Elevated Trop: Trop 0.32, no acute EKG changes, no c/o chest pain, likely secondary to renal failure, will place on telemetry, check serial cardiac enzymes to eval for underlying ischemia, Consult Cardiology as needed. 6. Narcotic Dependence: reports chronic pain for which she is prescribed Morphine SR 30mg q12h and Percocet 10/325mg q6h, will re-start low-dose Percocet for pain control and to avoid withdrawal, monitor closely 7. DVT Prophylaxis: Heparin sq 8. Social work for d/c planning as needed 9. Case discussed w/ ER physician at length, labs/records/imaging reviewed by me.
[2018-08-04 00:18] LABS: Hepatitis A IgM Antibody Nonreactive (Nonreactive); Hepatitits B Surface Antigen Nonreactive (Nonreactive)
[2018-08-04] MEDS ORDERED: Chlorhexidine Gluconate 2% 1 Pack (2 Cloths) TOPICAL PRN (04:00)
[2018-08-04] MEDS: Chlorhexidine Gluconate 2% 1 Pack (2 Cloths) TOPICAL SCH (04:30)
[2018-08-04 05:49] LABS: Baso # (Auto) 0.1 th/mm3 (0.0-0.2); Baso % (Auto) 0.6 % (0.0-2.0); Eos # (Auto) 0.1 th/mm3 (0.0-0.4); Eos % (Auto) 1.1 % (0.0-4.0); Hematocrit 27.2 % (35.0-46.0); Hemoglobin 9.2 gm/dL (11.6-15.3); Lymph % (Auto) 22.1 % (9.0-44.0); Mean Corpuscular HGB Conc 33.7 % (32.0-36.0); Mean Corpuscular Hemoglobin 34.9 pg (27.0-34.0); Mean Corpuscular Volume 103.4 fL (80.0-100.0); Mean Platelet Volume 8.8 fL (7.0-11.0); Mono # (Auto) 1.5 th/mm3 (0.0-0.9); Mono % (Auto) 16.7 % (0.0-8.0); Neut # (Auto) 5.3 th/mm3 (1.8-7.7); Neut % (Auto) 59.5 % (16.0-70.0); Platelet Count 192 th/mm3 (150-450); Red Blood Count 2.63 mil/mm3 (4.00-5.30); White Blood Count 8.9 th/mm3 (4.0-11.0)
[2018-08-04 06:39] LABS: Alanine Aminotransferase 46 U/L (10-53); Albumin 2.9 g/dL (3.4-5.0); Alkaline Phosphatase 73 U/L (45-117); Anion Gap 17 meq/L (5-15); Aspartate Aminotransferase 128 U/L (15-37); Blood Urea Nitrogen 54 mg/dL (7-18); Calcium 7.7 mg/dL (8.5-10.1); Carbon Dioxide 22.7 meq/L (21.0-32.0); Chloride 100 meq/L (98-107); Creatine Kinase 5376 U/L (26-192); Glomerular Filtration Rate 6 mL/min (>89); Glucose,Random 69 mg/dL (74-106); Potassium 3.6 meq/L (3.5-5.1); Sodium 140 meq/L (136-145); Total Protein 6.7 g/dL (6.4-8.2); Troponin I 0.31 ng/mL (0.02-0.05)
[2018-08-04 07:24] LABS: CKMB Percent 0.9 % (0.0-4.0); Creatine Kinase MB 48.8 ng/mL (0.5-3.6)
[2018-08-04] MEDS: Senna/Docusate Sodium 8.6/50 MG Tablet PO SCH ×2 (08:27→20:12)
[2018-08-04] MEDS: Heparin - SQ 10,000 UNITS/ML Vial SQ SCH ×2 (08:27→20:12)
--- NOTE | 2018-08-04 10:14 | P.PNIM ---
Subjective Interval history: Patient is awake, alert, and oriented. She states she will do better with complying with dialysis schedule. However she does not plan on decreasing her narcotics. When I told her I believe she was overmedicated, she reported that she did not care about what we think when it comes to her pain medications. Physical Exam Vital signs: Vital Signs 08/03/18 19:26 08/03/18 19:33 08/03/18 20:07 Temperature Pulse Rate 116 H 118 H Respiratory Rate 20 20 Blood Pressure 146/74 H 146/74 H Pulse Oximetry 95 96 96 08/03/18 22:13 08/04/18 00:00 08/04/18 00:22 Temperature 97.5 F L Pulse Rate 95 H 78 78 Respiratory Rate 18 16 13 Blood Pressure 172/73 H 137/63 Pulse Oximetry 97 95 08/04/18 00:30 08/04/18 00:45 08/04/18 01:00 Temperature Pulse Rate 77 73 72 Respiratory Rate 14 11 L 10 L Blood Pressure 126/56 L 106/55 L 101/55 L Pulse Oximetry 95 96 97 08/04/18 01:15 08/04/18 01:30 08/04/18 01:45 Temperature Pulse Rate 72 72 72 Respiratory Rate 9 L 8 L 9 L Blood Pressure 101/56 L 100/55 L 104/57 L Pulse Oximetry 97 97 97 08/04/18 02:00 08/04/18 02:15 08/04/18 02:30 Temperature Pulse Rate 74 80 71 Respiratory Rate 10 L 20 23 Blood Pressure 113/56 L 121/69 111/56 L Pulse Oximetry 96 96 95 08/04/18 02:45 08/04/18 03:00 08/04/18 03:15 Temperature Pulse Rate 63 63 67 Respiratory Rate 31 H 35 H 34 H Blood Pressure 106/55 L 106/58 L 113/61 Pulse Oximetry 95 95 95 08/04/18 03:30 08/04/18 03:45 08/04/18 04:00 Temperature 97.8 F Pulse Rate 67 61 64 Respiratory Rate 37 H 26 H 30 H Blood Pressure 119/62 115/57 L 116/60 Pulse Oximetry 94 L 95 94 L 08/04/18 08:00 08/04/18 09:00 Temperature 97.5 F L Pulse Rate 65 61 Respiratory Rate 30 H Blood Pressure 120/58 L Pulse Oximetry 99 Intake & Output 08/03/18 08/04/18 08/04/18 18:59 06:59 18:59 Intake Total 1820 / 1820 Output Total 2400 / 2400 Balance -580 / -580 Weight 74 kg Intake: IV 1500 / 1500 NS Inj 1,000 ML @ 1000 mls/hr 1000 / 1000 IV.SIG BOLUS PILO Rx#:[id number] NS Inj 500 ML @ 1000 mls/hr IV. 500 / 500 SIG BOLUS PILO Rx#:[id number] Oral 320 / 320 Output: Hemodialysis Amount 1999 / 1999 Urine Amount (Catheter) 400 / 400 Straight 400 / 400 Narrative: GENERAL: Patient appears older than stated age. No acute distress. CARDIOVASCULAR: Regular rate and rhythm. No obvious murmurs to auscultation. RESPIRATORY: Clear to auscultation bilaterally. GASTROINTESTINAL: Abdomen soft, non-tender, nondistended. BS normal. NEUROLOGICAL: Awake, alert and oriented to person, place, situation. No focal neurologic deficits. Moving both upper and lower extremities spontaneously. PSYCHIATRIC: Easily irritable. - Urinary Catheter Management Straight Cath placed during this visit: no Results - Labs CBC & Chem 7: 08/04/18 05:00 08/04/18 05:00 Laboratory Results - last 24 hr 08/03/18 08/03/18 08/03/18 19:50 19:50 19:50 WBC 9.0 RBC 3.13 L Hgb 10.7 L Hct 32.2 L MCV 102.9 H MCH 34.1 H MCHC 33.2 RDW 14.7 Plt Count 242 MPV 9.0 Neut % (Auto) 73.8 H Lymph % (Auto) 13.1 [place] % (Auto) 12.5 H Eos % (Auto) 0.1 Baso % (Auto) 0.5 Neut # (Auto) 6.6 Lymph # (Auto) 1.2 [place] # (Auto) 1.1 H Eos # (Auto) 0.0 Baso # (Auto) 0.0 WBC Differential . Differential Comment Auto diff final Sodium 135 L Potassium 6.1 H Chloride 100 Carbon Dioxide 13.3 L Anion Gap 22 H BUN 104 H Creatinine 12.97 H* Estimated GFR 3 L POC Glucose Random Glucose 109 H Lactic Acid Calcium 8.4 L Magnesium 2.6 H Total Bilirubin 0.8 AST 173 H ALT 59 H Alkaline Phosphatase 95 Total Creatine Kinase Cancelled 7960 H CK-MB (CK-2) 77.4 H CK-MB (CK-2) % 1.0 Troponin I Cancelled 0.32 H Total Protein 8.5 H Albumin 3.6 Urine Color Urine Clarity Urine pH Ur Specific [place] Urine Protein Urine Glucose (UA) Urine Ketones Urine Occult Blood Urine Nitrate Urine Bilirubin Urine Urobilinogen Ur Leukocyte Esterase Urine RBC Urine WBC Urine Bacteria Micro UA Comment Ur Microscopic Review Urine Culture Comments Nasal Screen MRSA (PCR) Hepatitis A IgM Ab Hep Bs Antigen Hep B Core IgM Ab Hep C IgG Ab 08/03/18 08/03/18 08/03/18 19:50 21:15 22:30 WBC RBC Hgb Hct MCV MCH MCHC RDW Plt Count MPV Neut % (Auto) Lymph % (Auto) [place] % (Auto) Eos % (Auto) Baso % (Auto) Neut # (Auto) Lymph # (Auto) [place] # (Auto) Eos # (Auto) Baso # (Auto) WBC Differential Differential Comment Sodium Potassium Chloride Carbon Dioxide Anion Gap BUN Creatinine Estimated GFR POC Glucose Random Glucose Lactic Acid 1.7 Calcium Magnesium Total Bilirubin AST ALT Alkaline Phosphatase Total Creatine Kinase CK-MB (CK-2) CK-MB (CK-2) % Troponin I Total Protein Albumin Urine Color Yellow Urine Clarity Clear Urine pH 5.0 Ur Specific [place] 1.011 Urine Protein 100 H Urine Glucose (UA) Negative Urine Ketones Negative Urine Occult Blood Large H Urine Nitrate Negative Urine Bilirubin Negative Urine Urobilinogen Less than 2 Ur Leukocyte Esterase Negative Urine RBC 9 H Urine WBC 7 H Urine Bacteria Few H Micro UA Comment Cath-culture ind Ur Microscopic Review Not Reportable Urine Culture Comments Cath-cult indicated Nasal Screen MRSA (PCR) Hepatitis A IgM Ab Nonreactive Hep Bs Antigen Nonreactive Hep B Core IgM Ab Nonreactive Hep C IgG Ab Nonreactive 08/03/18 08/04/18 08/04/18 23:20 05:00 05:00 WBC 8.9 RBC 2.63 L Hgb 9.2 L Hct 27.2 L MCV 103.4 H MCH 34.9 H MCHC 33.7 RDW 15.0 Plt Count 192 MPV 8.8 Neut % (Auto) 59.5 Lymph % (Auto) 22.1 [place] % (Auto) 16.7 H Eos % (Auto) 1.1 Baso % (Auto) 0.6 Neut # (Auto) 5.3 Lymph # (Auto) 2.0 [place] # (Auto) 1.5 H Eos # (Auto) 0.1 Baso # (Auto) 0.1 WBC Differential . Differential Comment Auto diff final Sodium 140 Potassium 3.6 D Chloride 100 Carbon Dioxide 22.7 D Anion Gap 17 H BUN 54 H Creatinine 7.27 H Estimated GFR 6 L POC Glucose Random Glucose 69 L Lactic Acid Calcium 7.7 L Magnesium Total Bilirubin 0.9 AST 128 H ALT 46 Alkaline Phosphatase 73 Total Creatine Kinase 5376 H CK-MB (CK-2) 48.8 H CK-MB (CK-2) % 0.9 Troponin I 0.31 H Total Protein 6.7 D Albumin 2.9 L D Urine Color Urine Clarity Urine pH Ur Specific [place] Urine Protein Urine Glucose (UA) Urine Ketones Urine Occult Blood Urine Nitrate Urine Bilirubin Urine Urobilinogen Ur Leukocyte Esterase Urine RBC Urine WBC Urine Bacteria Micro UA Comment Ur Microscopic Review Urine Culture Comments Nasal Screen MRSA (PCR) Not detected Hepatitis A IgM Ab Hep Bs Antigen Hep B Core IgM Ab Hep C IgG Ab 08/04/18 08:01 WBC RBC Hgb Hct MCV MCH MCHC RDW Plt Count MPV Neut % (Auto) Lymph % (Auto) [place] % (Auto) Eos % (Auto) Baso % (Auto) Neut # (Auto) Lymph # (Auto) [place] # (Auto) Eos # (Auto) Baso # (Auto) WBC Differential Differential Comment Sodium Potassium Chloride Carbon Dioxide Anion Gap BUN Creatinine Estimated GFR POC Glucose 91 Random Glucose Lactic Acid Calcium Magnesium Total Bilirubin AST ALT Alkaline Phosphatase Total Creatine Kinase CK-MB (CK-2) CK-MB (CK-2) % Troponin I Total Protein Albumin Urine Color Urine Clarity Urine pH Ur Specific [place] Urine Protein Urine Glucose (UA) Urine Ketones Urine Occult Blood Urine Nitrate Urine Bilirubin Urine Urobilinogen Ur Leukocyte Esterase Urine RBC Urine WBC Urine Bacteria Micro UA Comment Ur Microscopic Review Urine Culture Comments Nasal Screen MRSA (PCR) Hepatitis A IgM Ab Hep Bs Antigen Hep B Core IgM Ab Hep C IgG Ab - Imaging Impressions Chest X-Ray 08/03/18 19:39 CONCLUSION: No evidence of acute cardiopulmonary disease. Head CT 08/03/18 19:41 CONCLUSION: 1. No acute intracranial abnormality demonstrated. 2. Chronic white matter changes are again seen. . Assessment and Plan - Assessment (1) Encephalopathy Code(s): G93.40 - Encephalopathy, unspecified Status: Acute (2) ESRD (end stage renal disease) on dialysis Code(s): N18.6 - End stage renal disease; Z99.2 - Dependence on renal dialysis Status: Acute (3) Hyperkalemia Code(s): E87.5 - Hyperkalemia Status: Acute (4) Rhabdomyolysis Code(s): M62.82 - Rhabdomyolysis Status: Acute (5) Elevated troponin Code(s): R74.8 - Abnormal levels of other serum enzymes Status: Acute (6) Narcotic dependence Code(s): F11.20 - Opioid dependence, uncomplicated Status: Acute - Plan 68-year-old female who presented with acute encephalopathy likely secondary to significant uremia in addition to narcotics. Toxic metabolic encephalopathy: Uremia and overmedicated with narcotics. - Head CT with no acute findings. - Encephalopathy resolved after dialysis. Since seems to be at baseline. End-stage renal disease on hemodialysis: She admitted to having some issues with compliance at times reported "she falls asleep" - Overmedication with narcotics is likely contributing. Discussed this with the patient at length. She is not receptive to this. - Advised the patient to be compliant with dialysis. - Appreciate nephrology input. Dialysis as scheduled. - Hyperkalemia resolved with dialysis. Rhabdomyolysis: - Improving. Continue to follow labs. -PT to evaluate. Narcotic dependence: She reports chronic pain for which is prescribed Morphine SR 30mg q12h and Percocet 10/325mg q6h. advised the patient that she should not be on any long-acting medications especially given her end-stage renal disease on hemodialysis and she has not been compliant. Patient is not receptive to decreasing her pain medications. Will keep Percocet low-dose as needed to avoid withdrawal. Patient was counseled at length. Elevated Trop: Trop 0.32, no acute EKG changes, no c/o chest pain, likely secondary to renal failure -Remain flat. DVT Prophylaxis: Heparin sq Discharge Planning: Transfer to medical floor today. PT to evaluate. Likely discharge tomorrow morning if remains stable.
[2018-08-04 11:31] LABS: Troponin I 0.31 ng/mL (0.02-0.05)
[2018-08-04 11:44] LABS: CKMB Percent 0.9 % (0.0-4.0); Creatine Kinase MB 42.8 ng/mL (0.5-3.6)
--- NOTE | 2018-08-04 13:51 | ECG ---
Date Performed: 08/03/2018 Time Performed: 19:40:25 PTAGE: 68 years EKG: SINUS TACHYCARDIA ABNORMAL RHYTHM ECG Since the PREVIOUS TRACING , no significant change noted PREVIOUS TRACIN03/14/2012 08.52 DOCTOR: Joey Davis Interpretating Date/Time 08/04/2018 13:48:26
--- NOTE | 2018-08-04 14:55 | P.CONNP ---
History of Present Illness Reason for Consult: End-stage renal disease with need for inpatient dialysis services. Primary Care Provider: Viri Clark MD Chief Complaint: Severe azotemia, hyperkalemia secondary to noncompliance with dialysis. History of Present Illness: This patient is a 68-year-old female with a history of end-stage renal disease, hypertension on maintenance hemodialysis for a number of years. The patient has unfortunately a history of noncompliance with her dialysis sessions being repeatedly counseled regarding risks associated with noncompliance and she was advised that she continue this noncompliance that the patient physician relationship would be reevaluated as far as I was concerned. Unfortunately the patient failed to come into the dialysis facility for treatment for over 1 week this by being advised of the potential for the risk of and illness and also the police department was kind enough to go to her residence to do a welfare check and to advise to come in for medical treatment. The patient failed to do so and her son subsequently called EMS. There is a question regarding overuse of pain medications and this was addressed by the hospice physician but the patient was not receptive to education. The patient was seen during her dialysis session today which is her second treatment in house this admission. PMFSH - History History Provided By: Patient - Medical History Medical History: Medical History (Last Updated 08/04/18 @ 14:43 by Arabella Aguilar MD) Noncompliance of patient with renal dialysis Acute carpal tunnel syndrome Arthritis Diabetes ESRD (end stage renal disease) MRSA (methicillin resistant staph aureus) culture positive Pseudomonas infection Renal dialysis status - Tobacco History Second Hand Smoke Exposure: No Tobacco Use In Past 30 Days: No Smoking Status: Former smoker Tobacco Type: Cigarettes - Alcohol History How Often Do You Have a Drink Containing Alcohol: Never - Substance Use History Substance History: Past History - Immunization History Tetanus Immunization: >5 Years Medications and Allergies Active Medications: Active Medications Acetaminophen (Tylenol) 650 mg PO Q4H PRN PRN Reason: Temp > 100.4 Al Hydroxide/Mg Hydroxide (Milk Of Magnesia Liq) 30 ml PO Q12H PRN PRN Reason: Mild Constipation Bisacodyl (Dulcolax Supp) 10 mg RECTAL DAILY PRN PRN Reason: SEVERE CONSITIPATION Chlorhexidine Gluconate (Chlorhexidine 2% Cloth) 3 pack TOPICAL DAILY@0400 PILO Stop: 08/09/18 03:59 Last Admin: 08/04/18 04:30 Dose: 3 pack Chlorhexidine Gluconate (Chlorhexidine 2% Cloth) 3 pack TOPICAL DAILY@0400 PRN PRN Reason: Extra cloth needed Stop: 08/09/18 03:59 Clonidine HCl (Catapres) 0.1 mg PO UNSCH PRN PRN Reason: SEE LABEL COMMENTS Diphenhydramine HCl (Benadryl) 25 mg PO UNSCH PRN PRN Reason: SEE LABEL COMMENTS Gelatin (Gelfoam 12 Mm/7 Mm Topical) 1 foam TOPICAL PRN PRN PRN Reason: help stop bleeding from site Last Admin: 08/04/18 01:50 Dose: 1 foam Heparin Sodium (Porcine) (Heparin Inj) 5,000 units SQ Q12H [facility] Last Admin: 08/04/18 08:27 Dose: 5,000 units Heparin Sodium (Porcine) (Heparin Inj) 8,000 units OTHER WITH DIALYSIS PRN PRN Reason: for machine prime Sodium Chloride (Ns Inj) 1,000 mls @ 0 mls/hr OTHER .Q0M PRN PRN Reason: for prime and rinse back Sodium Chloride (Ns Inj) 1,000 mls @ 200 mls/hr OTHER .Q5H PRN PRN Reason: for dialyzer flush PRN Sodium Chloride (Ns Inj) 1,000 mls @ 0 mls/hr IV.CONT .Q0M PRN PRN Reason: hypotension / volume replace Albumin Human (Flexbumin 25% Inj) 100 mls @ 60 mls/hr IV.SIG WITH DIALYSIS PRN PRN Reason: hypotension / volume replace Lactulose (Lactulose Liq) 30 ml PO DAILY PRN PRN Reason: SEVERE CONSITIPATION Nitroglycerin (Nitrostat Sl) 0.4 mg SL Q5M PRN PRN Reason: CHEST PAIN Ondansetron HCl (Zofran Inj) 4 mg IV.PUSH Q6H PRN PRN Reason: NAUSEA OR VOMITING Ondansetron HCl (Zofran Inj) 4 mg IV.PUSH UNSCH PRN PRN Reason: NAUSEA OR VOMITING Oxycodone/Acetaminophen (Percocet 5/325 Mg) 1 tab PO Q4H PRN PRN Reason: PAIN 1-10 Senna/Docusate Sodium (Erika-Colace) 1 tab PO BID [facility] Last Admin: 08/04/18 08:27 Dose: 1 tab Sennosides (Senokot) 17.2 mg PO Q12H PRN PRN Reason: Moderate Constipation Sodium Chloride (Ns Flush) 5 ml IV.FLUSH PRN PRN PRN Reason: flush each lumen during HD Allergies Allergy/AdvReac Type Severity Reaction Status Date / Time butorphanol Allergy Severe "NERVE Verified 05/30/18 10:33 ENDING ON FIRE" ketorolac Allergy Severe "NERVE ON Verified 05/30/18 10:33 FIRE" Home Medications Medication Instructions Recorded Confirmed Type calcium acetate mg PO TID 05/06/18 History dextroamphetamine-amphetamine mg PO BID 05/06/18 History [Adderall] furosemide [Lasix] mg PO DAILY 05/06/18 History morphine [MorphaBond ER] 30 mg PO Q12H 05/06/18 08/03/18 History oxycodone-acetaminophen [Percocet] tab PO Q6H PRN 05/06/18 History Exam Vital signs: Vital Signs 08/03/18 19:26 08/03/18 19:33 08/03/18 20:07 Temperature Pulse Rate 116 H 118 H Respiratory Rate 20 20 Blood Pressure 146/74 H 146/74 H Pulse Oximetry 95 96 96 08/03/18 22:13 08/04/18 00:00 08/04/18 00:22 Temperature 97.5 F L Pulse Rate 95 H 78 78 Respiratory Rate 18 16 13 Blood Pressure 172/73 H 137/63 Pulse Oximetry 97 95 08/04/18 00:30 08/04/18 00:45 08/04/18 01:00 Temperature Pulse Rate 77 73 72 Respiratory Rate 14 11 L 10 L Blood Pressure 126/56 L 106/55 L 101/55 L Pulse Oximetry 95 96 97 08/04/18 01:15 08/04/18 01:30 08/04/18 01:45 Temperature Pulse Rate 72 72 72 Respiratory Rate 9 L 8 L 9 L Blood Pressure 101/56 L 100/55 L 104/57 L Pulse Oximetry 97 97 97 08/04/18 02:00 08/04/18 02:15 08/04/18 02:30 Temperature Pulse Rate 74 80 71 Respiratory Rate 10 L 20 23 Blood Pressure 113/56 L 121/69 111/56 L Pulse Oximetry 96 96 95 08/04/18 02:45 08/04/18 03:00 08/04/18 03:15 Temperature Pulse Rate 63 63 67 Respiratory Rate 31 H 35 H 34 H Blood Pressure 106/55 L 106/58 L 113/61 Pulse Oximetry 95 95 95 08/04/18 03:30 08/04/18 03:45 08/04/18 04:00 Temperature 97.8 F Pulse Rate 67 61 64 Respiratory Rate 37 H 26 H 30 H Blood Pressure 119/62 115/57 L 116/60 Pulse Oximetry 94 L 95 94 L 08/04/18 08:00 08/04/18 09:00 08/04/18 12:00 Temperature 97.5 F L 97.8 F Pulse Rate 65 61 65 Respiratory Rate 30 H 9 L Blood Pressure 120/58 L 103/56 L Pulse Oximetry 99 100 Intake & Output 08/03/18 08/04/18 08/04/18 18:59 06:59 18:59 Intake Total 1820 / 1820 Output Total 2400 / 2400 Balance -580 / -580 Weight 74 kg Intake: IV 1500 / 1500 NS Inj 1,000 ML @ 1000 mls/hr 1000 / 1000 IV.SIG BOLUS PILO Rx#:[id number] NS Inj 500 ML @ 1000 mls/hr IV. 500 / 500 SIG BOLUS PILO Rx#:[id number] Oral 320 / 320 Output: Hemodialysis Amount 1999 / 1999 Urine Amount (Catheter) 400 / 400 Straight 400 / 400 Narrative: GENERAL: Patient currently receiving hemodialysis. Presently appears to be alert with mental status at baseline. SKIN: Warm and dry. HEAD: Normocephalic. EYES: No scleral icterus. No injection or drainage. NECK: Supple, trachea midline. No JVD or lymphadenopathy. CARDIOVASCULAR: Regular rate and rhythm without murmurs, gallops, or rubs. RESPIRATORY: Breath sounds equal bilaterally. No accessory muscle use. GASTROINTESTINAL: Abdomen soft, non-tender, nondistended. MUSCULOSKELETAL: No cyanosis, or edema. BACK: Nontender without obvious deformity. No CVA tenderness. Results - Lab Results 08/04/18 05:00 08/04/18 05:00 Most recent lab results Calcium 7.7 mg/dL (8.5-10.1) L 08/04/18 05:00 Magnesium 2.6 mg/dL (1.5-2.5) H 11/24/18 19:50 Assessment and Plan - Assessment (1) ESRD (end stage renal disease) on dialysis Code(s): N18.6 - End stage renal disease; Z99.2 - Dependence on renal dialysis Status: Acute Plan: Patient has received 2 dialysis sessions so far in house. Duration of initial treatment was initially only 2 hours to reduce the risk of disequilibrium. She is receiving 3 hour treatment today. Metabolic status has improved. Review labs tomorrow will decide upon whether or not to do another dialysis session tomorrow or resume dialysis as per outpatient schedule Sunday and Sunday. Patient was counseled again regarding risks associated with noncompliance with dialysis treatments as she has been counseled in the past. (2) Noncompliance with renal dialysis Code(s): Z91.15 - Patient's noncompliance with renal dialysis Status: Acute Plan: The patient is indicating to me that she will be compliant with her dialysis treatments from now on however she has done so in the past also. Patient has not been following my medical advice and counseling. She was therefore advised that she will receive written notification that the our patient physician relationship will be terminated with nephrology care being provided by myself for an additional 30 days if required but not beyond that. She was advised that she can work with the social psychologist who will be contacting her in regard to finding another nurse supervisor if she requires additional help doing so. I also advised her indicating that she does have a dialysis facility to return to after discharge from this admission under my care for the present with the above -mentioned course of action. (3) Acidosis, metabolic Code(s): E87.2 - Acidosis Status: Acute Plan: Improved with dialysis. (4) Hyperkalemia Code(s): E87.5 - Hyperkalemia Status: Acute - Plan Resolved with dialysis.
[2018-08-05] MEDS: Chlorhexidine Gluconate 2% 1 Pack (2 Cloths) TOPICAL SCH (06:09)
[2018-08-05 07:34] LABS: Calcium 7.4 mg/dL (8.5-10.1); Carbon Dioxide 31.3 meq/L (21.0-32.0); Potassium 3.4 meq/L (3.5-5.1)
--- NOTE | 2018-08-05 07:48 | P.PN ---
Subjective Interval history: Follow-up on patient with encephalopathy, end-stage renal disease on hemodialysis. Patient seen and examined. Patient states she does not feel well this morning. She is complaining of sensation of something sitting on her chest. She denies any radicular pain in the arm, neck or jaw. She denies any palpitations or shortness of breath. She endorses nausea and vomiting. She denies any dizziness or lightheadedness. She denies any diaphoresis. She does not endorse other cardiac history or previous IL. Physical Exam Vital signs: Vital Signs 08/04/18 08:00 08/04/18 09:00 08/04/18 12:00 Temperature 97.5 F L 97.8 F Pulse Rate 65 61 65 Respiratory Rate 30 H 9 L Blood Pressure 120/58 L 103/56 L Pulse Oximetry 99 100 08/04/18 17:45 08/04/18 19:03 08/04/18 20:03 Temperature 98.1 F 98.1 F 97.9 F Pulse Rate 65 78 79 Respiratory Rate 16 18 18 Blood Pressure 150/69 H 170/70 H 135/65 Pulse Oximetry 92 L 94 L 08/04/18 21:03 08/04/18 22:03 08/04/18 22:30 Temperature 97.8 F 98 F Pulse Rate 76 73 75 Respiratory Rate 17 18 Blood Pressure 137/60 154/66 H Pulse Oximetry 95 94 L 08/05/18 00:00 08/05/18 00:15 08/05/18 02:03 Temperature 97.9 F 98.2 F Pulse Rate 78 76 72 Respiratory Rate 17 19 Blood Pressure 141/71 H 143/67 H Pulse Oximetry 94 L 96 08/05/18 04:00 08/05/18 06:03 Temperature 98.2 F 98.6 F Pulse Rate 71 75 Respiratory Rate 16 18 Blood Pressure 135/61 145/67 H Pulse Oximetry 93 L 96 Intake & Output 08/04/18 08/05/18 08/05/18 18:59 06:59 18:59 Output Total 1000 / 1000 Balance -1000 / -1000 Weight 72.1 kg Output: Hemodialysis Amount 1000 / 1000 Other: Date of Last Bowel Movement 08/04/18 # Bowel Movements 1 Narrative: GENERAL: Chronically ill-appearing female in no acute distress. Awake and alert. SKIN: Warm and dry. HEAD: Atraumatic. Normocephalic. EYES: EOMI. No scleral icterus. No injection or drainage. ENT: No nasal bleeding or discharge. Mucous membranes pink and moist. NECK: Trachea midline. CARDIOVASCULAR: Regular rate and rhythm. +murmur auscultated. RESPIRATORY: No accessory muscle use. Breath sounds equal bilaterally. Mild expiratory wheezing noted on exam. GASTROINTESTINAL: Abdomen soft, non-tender, nondistended. Hepatic and splenic margins not palpable. MUSCULOSKELETAL: Extremities without clubbing, cyanosis, or edema. No obvious deformities. NEUROLOGICAL: Awake and alert. No obvious cranial nerve deficits. Motor grossly within normal limits. Able to move all extremities spontaneously. Normal speech. PSYCHIATRIC: Calm and cooperative. - Urinary Catheter Management Straight Cath placed during this visit: no Results - Labs CBC & Chem 7: 08/05/18 09:55 08/05/18 05:37 Laboratory Results - last 24 hr 08/04/18 08/04/18 08/05/18 08:01 10:25 05:37 Sodium 143 Potassium 3.4 L Chloride 102 Carbon Dioxide 31.3 Anion Gap 10 BUN 31 H Creatinine 4.95 H Estimated GFR 9 L POC Glucose 91 Random Glucose 127 H Calcium 7.4 L* Total Creatine Kinase 4572 H 2110 H CK-MB (CK-2) 42.8 H CK-MB (CK-2) % 0.9 Troponin I 0.31 H Microbiology 08/03/18 21:15 Catheterized Urine Urine Culture - Preliminary No growth. 08/03/18 19:55 Blood - Peripheral Aerobic Blood Culture - Preliminary No growth in 1 day 08/03/18 19:55 Blood - Peripheral Anaerobic Blood Culture - Preliminary No growth in 1 day 08/03/18 19:50 Blood - Peripheral Aerobic Blood Culture - Preliminary No growth in 1 day 08/03/18 19:50 Blood - Peripheral Anaerobic Blood Culture - Preliminary No growth in 1 day Assessment and Plan - Assessment (1) Encephalopathy Code(s): G93.40 - Encephalopathy, unspecified Status: Acute (2) ESRD (end stage renal disease) on dialysis Code(s): N18.6 - End stage renal disease; Z99.2 - Dependence on renal dialysis Status: Acute (3) Hyperkalemia Code(s): E87.5 - Hyperkalemia Status: Acute (4) Rhabdomyolysis Code(s): M62.82 - Rhabdomyolysis Status: Acute (5) Elevated troponin Code(s): R74.8 - Abnormal levels of other serum enzymes Status: Acute (6) Narcotic dependence Code(s): F11.20 - Opioid dependence, uncomplicated Status: Acute - Plan 68-year-old female who presented with acute encephalopathy likely secondary to significant uremia in addition to narcotics. Chest pain patient reports sensation of something sitting on her chest with associated nausea and vomiting patient with elevated but flat troponins, likely secondary to renal failure - obtain serial cardiac enzymes and EKGs - give ASA now - NTG prn chest pain - Protonix 40mg daily - continue to monitor on telemetry - Consult Cardiology, appreciate assistance Toxic metabolic encephalopathy: Uremia and overmedicated with narcotics. - Head CT with no acute findings. - Encephalopathy resolved after dialysis. Since seems to be at baseline. End-stage renal disease on hemodialysis: She admitted to having some issues with compliance at times reported "she falls asleep" - Overmedication with narcotics is likely contributing. Discussed this with the patient at length. She is not receptive to this. - Advised the patient to be compliant with dialysis. - Appreciate nephrology input. Dialysis as scheduled. - Hyperkalemia resolved with dialysis. Rhabdomyolysis: - Improving. Continue to follow labs. - Encourage po intake - continue with PT, recommending rehab at discharge. CM consulted to assist with discharge planning. Narcotic dependence: She reports chronic pain for which is prescribed Morphine SR 30mg q12h and Percocet 10/325mg q6h. advised the patient that she should not be on any long-acting medications especially given her end-stage renal disease on hemodialysis and she has not been compliant. Patient is not receptive to decreasing her pain medications. Will keep Percocet low-dose as needed to avoid withdrawal. Patient was counseled at length. DVT Prophylaxis: Heparin sq Code Status: Full Discussed Condition With: patient, nursing staff, Dr. Guerra Discharge Planning: Plan to discharge to SNF. CM to assist with discharge planning.
[2018-08-05 08:02] LABS: Calcium-Albumin Corrected 7.7 mg/dL (8.5-10.1); Total Protein 6.5 g/dL (6.4-8.2)
[2018-08-05 08:09] LABS: CKMB Percent 0.6 % (0.0-4.0); Creatine Kinase MB 13.7 ng/mL (0.5-3.6)
[2018-08-05] MEDS: Senna/Docusate Sodium 8.6/50 MG Tablet PO SCH ×2 (08:40→21:43)
[2018-08-05] MEDS: Heparin - SQ 10,000 UNITS/ML Vial SQ SCH ×2 (08:40→21:43)
[2018-08-05] MEDS ORDERED: Aspirin 325 MG Tablet PO ONE (09:00)
--- NOTE | 2018-08-05 09:21 | P.PNNP ---
Subjective Interval history: This patient is a 68-year-old female with a history of end-stage renal disease, hypertension on maintenance hemodialysis for a number of years. The patient has unfortunately a history of noncompliance with her dialysis sessions being repeatedly counseled regarding risks associated with noncompliance and she was advised that she continue this noncompliance that the patient physician relationship would be reevaluated as far as I was concerned. Unfortunately the patient failed to come into the dialysis facility for treatment for over 1 week this by being advised of the potential for the risk of and illness and also the police department was kind enough to go to her residence to do a welfare check and to advise to come in for medical treatment. The patient failed to do so and her son subsequently called EMS. There is a question regarding overuse of pain medications and this was addressed by the hospice physician but the patient was not receptive to education. The patient was seen during her dialysis session today which is her second treatment in house this admission. 08/05/18 Pt reports she is not feeling well today. Appears quite depressed and tearful during exam. States she had some chest pressure earlier this AM but has resolved. Worried about outpatient dialysis as she says that she no longer feels safe driving. Physical Exam Vital signs: Vital Signs 08/04/18 12:00 08/04/18 17:45 08/04/18 19:03 Temperature 97.8 F 98.1 F 98.1 F Pulse Rate 65 65 78 Respiratory Rate 9 L 16 18 Blood Pressure 103/56 L 150/69 H 170/70 H Pulse Oximetry 100 92 L 08/04/18 20:03 08/04/18 21:03 08/04/18 22:03 Temperature 97.9 F 97.8 F 98 F Pulse Rate 79 76 73 Respiratory Rate 18 17 18 Blood Pressure 135/65 137/60 154/66 H Pulse Oximetry 94 L 95 94 L 08/04/18 22:30 08/05/18 00:00 08/05/18 00:15 Temperature 97.9 F Pulse Rate 75 78 76 Respiratory Rate 17 Blood Pressure 141/71 H Pulse Oximetry 94 L 08/05/18 02:03 08/05/18 04:00 08/05/18 06:03 Temperature 98.2 F 98.2 F 98.6 F Pulse Rate 72 71 75 Respiratory Rate 19 16 18 Blood Pressure 143/67 H 135/61 145/67 H Pulse Oximetry 96 93 L 96 Intake & Output 08/04/18 08/05/18 08/05/18 18:59 06:59 18:59 Output Total 1000 / 1000 Balance -1000 / -1000 Weight 72.1 kg Output: Hemodialysis Amount 1000 / 1000 Other: Date of Last Bowel Movement 08/04/18 # Bowel Movements 1 - Constitutional mild distress - Routine HEENT Exam Head: Present: normocephalic - Routine Neck Exam Present: supple - Routine Respiratory Exam Present: CTA bilaterally - Routine Cardiovascular Exam Present: RRR, S1, S2, murmur - Routine Abdominal Exam Present: soft - Routine Extremities Exam Present: edema (trace edema legs) - Routine Neurological Exam Present: alert - Urinary Catheter Management Straight Cath placed during this visit: no Assessment and Plan - Assessment (1) ESRD (end stage renal disease) on dialysis Code(s): N18.6 - End stage renal disease; Z99.2 - Dependence on renal dialysis Status: Acute Plan: HD today for 2.5h tx to keep on MWF schedule. Patient was counseled again regarding risks associated with noncompliance with dialysis treatments as she has been counseled in the past. (2) Noncompliance with renal dialysis Code(s): Z91.15 - Patient's noncompliance with renal dialysis Status: Acute Plan: The patient is indicating to me that she will be compliant with her dialysis treatments from now on however she has done so in the past also. Patient has not been following my medical advice and counseling. She was therefore advised that she will receive written notification that the our patient physician relationship will be terminated with nephrology care being provided by myself for an additional 30 days if required but not beyond that. She was advised that she can work with the licensed master social worker who will be contacting her in regard to finding another manager women if she requires additional help doing so. I also advised her indicating that she does have a dialysis facility to return to after discharge from this admission under my care for the present with the above -mentioned course of action. (3) Acidosis, metabolic Code(s): E87.2 - Acidosis Status: Acute Plan: Improved with dialysis. (4) Hyperkalemia Code(s): E87.5 - Hyperkalemia Status: Acute - Plan Resolved with dialysis.
--- NOTE | 2018-08-05 10:12 | XR ---
EXAM DATE: 08/05/2018 10:08 AM EST AGE/SEX: 68 years / Female INDICATIONS: Chest pain. CLINICAL DATA: This is the patient's initial encounter. Patient reports that signs and symptoms have been present for 1 week and indicates a pain score of 4/10. MEDICAL/SURGICAL HISTORY: Diabetes mellitus type II. renal disease, end stage None. COMPARISON: [facility] [place], CHEST 1V SINGLE AP, 08/03/2018. . FINDINGS: The heart is mildly enlarged. There are chronic interstitial changes within the parenchyma. There is no overt congestive failure. No suspicious mass lesion is identified. The examination does demonstrate previous surgical osteotomy of the right posterior seventh rib. CONCLUSION: Mild cardiomegaly. Stable appearance of the examination is compared to previous dated 08/03/2018. No acute abnormality identified. Electronically signed by: Jag Arellano MD 08/05/2018 10:11 AM EST
[2018-08-05 10:13] LABS: Baso # (Auto) 0.1 th/mm3 (0.0-0.2); Baso % (Auto) 0.8 % (0.0-2.0); Eos # (Auto) 0.1 th/mm3 (0.0-0.4); Eos % (Auto) 1.1 % (0.0-4.0); Hematocrit 30.2 % (35.0-46.0); Hemoglobin 10.2 gm/dL (11.6-15.3); Lymph # (Auto) 1.2 th/mm3 (1.0-4.8); Lymph % (Auto) 13.1 % (9.0-44.0); Mean Corpuscular HGB Conc 33.7 % (32.0-36.0); Mean Platelet Volume 8.5 fL (7.0-11.0); Mono # (Auto) 1.3 th/mm3 (0.0-0.9); Mono % (Auto) 14.3 % (0.0-8.0); Neut # (Auto) 6.3 th/mm3 (1.8-7.7); Neut % (Auto) 70.7 % (16.0-70.0); Platelet Count 196 th/mm3 (150-450); Red Blood Count 2.91 mil/mm3 (4.00-5.30); Red Cell Distribution Width 14.8 % (11.6-17.2); White Blood Count 8.9 th/mm3 (4.0-11.0)
[2018-08-05 10:52] LABS: Troponin I 0.43 ng/mL (0.02-0.05)
[2018-08-05 11:05] LABS: CKMB Percent 0.6 % (0.0-4.0); Creatine Kinase MB 11.1 ng/mL (0.5-3.6)
[2018-08-05 17:48] LABS: Troponin I 0.35 ng/mL (0.02-0.05)
[2018-08-05 18:03] LABS: CKMB Percent 0.5 % (0.0-4.0); Creatine Kinase MB 7.7 ng/mL (0.5-3.6)
[2018-08-05 23:55] LABS: Albumin 2.7 g/dL (3.4-5.0); Calcium 7.4 mg/dL (8.5-10.1); Carbon Dioxide 30.6 meq/L (21.0-32.0); Phosphorus 2.2 mg/dL (2.5-4.9); Troponin I 0.31 ng/mL (0.02-0.05)
[2018-08-06 00:10] LABS: CKMB Percent 0.6 % (0.0-4.0); Creatine Kinase MB 6.5 ng/mL (0.5-3.6)
[2018-08-06 00:36] LABS: Calcium-Albumin Corrected 8.4 mg/dL (8.5-10.1)
--- NOTE | 2018-08-06 01:14 | MB ---
cc: Joey Davis DO DATE: 08/05/2018 REASON FOR CONSULTATION: Chest pain, elevated troponin. HISTORY OF PRESENT ILLNESS: Dasha Andrew is a 68-year-old female who presented to [place] via EMS for acute mental status change. Apparently, the patient had not gone to her dialysis for around a week and a half, missing her last 5 dialysis sessions because she supposedly fell asleep. She states that she has been having a lot of stressors at home and has essentially blown off everything in her life including dialysis. There was also concern for overmedication of her prescribed narcotics upon arrival. She also notes pain all over and was requesting her home medications. Since being here, she has undergone dialysis the past 2 days and she is currently on dialysis. This morning, she started noticing some chest pain, which felt somewhat like heaviness in her chest. Troponins were checked and were noted to be mildly elevated and so I was asked to see her. In discussing with her, she states that she has had some heaviness off and on in the past few days. She has a known ascending aortic aneurysm, which she last had imaged this summer in February, which was stable at 4.7 x 4.5 cm. PAST MEDICAL HISTORY: 1. Ascending aortic aneurysm (4.7 cm x 4.[address] 02/2018). 2. Carpal tunnel syndrome. 3. Arthritis. 4. Diabetes. 5. End-stage renal disease, on hemodialysis. 6. Noncompliance with hemodialysis. PAST SURGICAL HISTORY: 1. Spinal fusion, C5-C6. 2. Breast surgery. 3. Right rotator cuff surgery. 4. Hand surgery. 5. Exploratory surgery with resection of uterine cyst. 6. Foot surgery. 7. Knee surgery. ALLERGIES: 1. BUTORPHANOL. 2. KETOROLAC. MEDICATIONS: 1. Lasix 20 mg daily. 2. Adderall 5 mg b.i.d. 3. Percocet 10/325 mg every 6 hours as needed. 4. Morphine 30 mg b.i.d. FAMILY HISTORY: Denies premature coronary artery disease or sudden cardiac within the family. SOCIAL HISTORY: The patient previously smoked. Denies alcohol or drug abuse. REVIEW OF SYSTEMS: Fourteen systems were reviewed including osteopathic. Pertinent positives and negatives above, otherwise negative. PHYSICAL EXAMINATION: VITAL SIGNS: Temperature 98.0, heart rate 73, blood pressure 169/76, respirations 16, pulse oximetry 94% on room air. GENERAL: The patient is in no acute distress, alert, awake and oriented x3. HEENT: Extraocular muscles intact. Mucous membranes moist. NECK: Supple. No JVD at 45 degrees. No carotid bruits heard bilaterally. Carotid upstroke is brisk in nature. HEART: Regular rate and rhythm. Positive first and second heart sounds with no noted murmurs, gallops or rubs. LUNGS: Clear to auscultation bilaterally. No wheezes, rales or rhonchi. ABDOMEN: Soft, nontender, nondistended. No organomegaly noted. EXTREMITIES: Show no clubbing, cyanosis or edema. Femoral and distal pulses are intact bilaterally. NEUROLOGIC: No focal deficits. SKIN: Warm, dry and intact. OSTEOPATHIC: No kyphoscoliosis, lordosis or paraspinal tender points. LABORATORY DATA: Hemoglobin 10.2, hematocrit 30.2, platelets 196. Potassium 3.0, BUN 17, creatinine 3.86. Total CK 796, decreasing to 1170. Troponin 0.43. Electrocardiogram (08/05/2018 at 10:10): Normal sinus rhythm. No acute ST-T wave changes. IMPRESSIONS: 1. Atypical chest pain. 2. Elevated troponin, possibly due to rhabdomyolysis. 3. Rhabdomyolysis. 4. Noncompliant with hemodialysis. 5. End-stage renal disease, on hemodialysis. 6. Ascending aortic aneurysm (4.7 x 4.5 cm), which is apparently stable at the time of imaging (02/2018). RECOMMENDATIONS: 1. Ms. Andrew has had some chest pain, which is new for her and appears somewhat atypical for coronary insufficiency. 2. Chest pain may be due to an elevated LVEDP with missing dialysis for the past week and a half and overall overloaded fluid state. 3. Troponin is minimally elevated, but this may be due to her rhabdomyolysis with a CK level of 76,000. 4. Previous ascending aortic aneurysm is stable per imaging (02/2018). 5. She will ultimately need to have followup to continue to have surveillance of her ascending aortic aneurysm. 6. We will have her undergo a pharmacologic nuclear stress test to further evaluate for coronary artery disease. 7. Further recommendations will be made based on the hospital course. Thank you for allowing me to see Dasha Andrew. If there are any questions, please do not hesitate to call. Joey Davis DO VGP/rw , 12:04 AM , 12:18 AM
[2018-08-06] MEDS: Chlorhexidine Gluconate 2% 1 Pack (2 Cloths) TOPICAL SCH (04:00)
[2018-08-06 05:05] LABS: Baso # (Auto) 0.1 th/mm3 (0.0-0.2); Baso % (Auto) 0.7 % (0.0-2.0); Eos # (Auto) 0.3 th/mm3 (0.0-0.4); Eos % (Auto) 2.5 % (0.0-4.0); Hematocrit 29.7 % (35.0-46.0); Hemoglobin 10.1 gm/dL (11.6-15.3); Mean Corpuscular HGB Conc 33.9 % (32.0-36.0); Mean Corpuscular Hemoglobin 34.3 pg (27.0-34.0); Mean Corpuscular Volume 101.4 fL (80.0-100.0); Mean Platelet Volume 8.8 fL (7.0-11.0); Mono # (Auto) 1.5 th/mm3 (0.0-0.9); Mono % (Auto) 13.2 % (0.0-8.0); Neut # (Auto) 6.7 th/mm3 (1.8-7.7); Neut % (Auto) 57.6 % (16.0-70.0); Platelet Count 190 th/mm3 (150-450); Red Blood Count 2.93 mil/mm3 (4.00-5.30); Red Cell Distribution Width 14.5 % (11.6-17.2); White Blood Count 11.6 th/mm3 (4.0-11.0)
--- NOTE | 2018-08-06 06:36 | ECG ---
Date Performed: 08/05/2018 Time Performed: 10:10:40 PTAGE: 68 years EKG: Sinus rhythm NORMAL ECG PREVIOUS TRACING : 08/03/2018 19.40 Since the previous tracing, no significant change noted DOCTOR: Jignesh Nassar Interpretating Date/Time 08/06/2018 06:34:49
--- NOTE | 2018-08-06 08:15 | P.PN ---
Subjective Interval history: Follow up on patient with E[facility], chest pain. Patient seen and examined. Patient says she feels much better this morning. She does not have any nausea or vomiting. She does not have any chest pain at this time. She is refusing SNF. She is insisting on going home with [facility]. Physical Exam Vital signs: Vital Signs 08/05/18 10:03 08/05/18 12:25 08/05/18 14:00 Temperature 98.4 F 98 F 98 F Pulse Rate 70 73 73 Respiratory Rate 16 16 16 Blood Pressure 157/76 H 169/76 H 169/76 H Pulse Oximetry 95 94 L 08/05/18 18:00 08/05/18 20:00 08/06/18 00:00 Temperature 98.1 F 98.5 F 98.5 F Pulse Rate 72 71 70 Respiratory Rate 16 18 18 Blood Pressure 153/81 H 152/78 H 133/60 Pulse Oximetry 95 95 96 08/06/18 04:00 Temperature 98.2 F Pulse Rate 64 Respiratory Rate 18 Blood Pressure 148/69 H Pulse Oximetry 95 Intake & Output 08/05/18 08/06/18 08/06/18 18:59 06:59 18:59 Intake Total 480 / 480 Output Total 1999 Balance -1999 480 / 480 Weight 72.1 kg Intake: Oral 480 / 480 Output: Hemodialysis Amount 1999 Other: Date of Last Bowel Movement 08/04/18 Narrative: GENERAL: Chronically ill-appearing female in no acute distress. Awake and alert. Appears comfortable lying in bed. SKIN: Warm and dry. HEENT: Atraumatic. Normocephalic. EOMI. No scleral icterus. No injection or drainage. No nasal bleeding or discharge. Mucous membranes pink and moist. NECK: Trachea midline. CARDIOVASCULAR: Regular rate and rhythm. +murmur auscultated. RESPIRATORY: No accessory muscle use. Breath sounds equal bilaterally. Mild expiratory wheezing noted on exam. GASTROINTESTINAL: Abdomen soft, non-tender, nondistended. Hepatic and splenic margins not palpable. MUSCULOSKELETAL: Extremities without clubbing, cyanosis, or edema. No obvious deformities. NEUROLOGICAL: Awake and alert. No obvious cranial nerve deficits. Motor grossly within normal limits. Able to move all extremities spontaneously. Normal speech. PSYCHIATRIC: Calm and cooperative. - Urinary Catheter Management Straight Cath placed during this visit: no Results - Labs CBC & Chem 7: 08/06/18 04:37 08/05/18 22:22 Laboratory Results - last 24 hr 08/05/18 08/05/18 08/05/18 09:55 09:55 16:25 WBC 8.9 RBC 2.91 L Hgb 10.2 L Hct 30.2 L MCV 104.0 H MCH 35.0 H MCHC 33.7 RDW 14.8 Plt Count 196 MPV 8.5 Neut % (Auto) 70.7 H Lymph % (Auto) 13.1 Mckenzie % (Auto) 14.3 H Eos % (Auto) 1.1 Baso % (Auto) 0.8 Neut # (Auto) 6.3 Lymph # (Auto) 1.2 Mckenzie # (Auto) 1.3 H Eos # (Auto) 0.1 Baso # (Auto) 0.1 WBC Differential . Differential Comment Auto diff final Sodium Potassium Chloride Carbon Dioxide Anion Gap BUN Creatinine Estimated GFR Random Glucose Calcium Calcium Adj for Albumin Phosphorus Total Creatine Kinase 1814 H 1468 H CK-MB (CK-2) 11.1 H 7.7 H CK-MB (CK-2) % 0.6 0.5 Troponin I 0.43 H D 0.35 H Albumin 08/05/18 08/06/18 22:22 04:37 WBC 11.6 H RBC 2.93 L Hgb 10.1 L Hct 29.7 L MCV 101.4 H MCH 34.3 H MCHC 33.9 RDW 14.5 Plt Count 190 MPV 8.8 Neut % (Auto) 57.6 Lymph % (Auto) 26.0 Mckenzie % (Auto) 13.2 H Eos % (Auto) 2.5 Baso % (Auto) 0.7 Neut # (Auto) 6.7 Lymph # (Auto) 3.0 Mckenzie # (Auto) 1.5 H Eos # (Auto) 0.3 Baso # (Auto) 0.1 WBC Differential . Differential Comment Auto diff final Sodium 140 Potassium 3.0 L Chloride 102 Carbon Dioxide 30.6 Anion Gap 7 BUN 17 Creatinine 3.86 H Estimated GFR 12 L Random Glucose 207 H Calcium 7.4 L* Calcium Adj for Albumin 8.4 L Phosphorus 2.2 L Total Creatine Kinase 1170 H CK-MB (CK-2) 6.5 H CK-MB (CK-2) % 0.6 Troponin I 0.31 H Albumin 2.7 L Microbiology 08/03/18 19:55 Blood - Peripheral Aerobic Blood Culture - Preliminary No growth in 2 days 08/03/18 19:55 Blood - Peripheral Anaerobic Blood Culture - Preliminary No growth in 2 days 08/03/18 19:50 Blood - Peripheral Aerobic Blood Culture - Preliminary No growth in 2 days 08/03/18 19:50 Blood - Peripheral Anaerobic Blood Culture - Preliminary No growth in 2 days 08/03/18 21:15 Catheterized Urine Urine Culture - Final No growth in 48 hours - Imaging Impressions Chest X-Ray 08/05/18 00:00 CONCLUSION: Mild cardiomegaly. Stable appearance of the examination is compared to previous dated 08/03/2018. No acute abnormality identified. Assessment and Plan - Assessment (1) Encephalopathy Code(s): G93.40 - Encephalopathy, unspecified Status: Acute (2) ESRD (end stage renal disease) on dialysis Code(s): N18.6 - End stage renal disease; Z99.2 - Dependence on renal dialysis Status: Acute (3) Hyperkalemia Code(s): E87.5 - Hyperkalemia Status: Acute (4) Rhabdomyolysis Code(s): M62.82 - Rhabdomyolysis Status: Acute (5) Elevated troponin Code(s): R74.8 - Abnormal levels of other serum enzymes Status: Acute (6) Narcotic dependence Code(s): F11.20 - Opioid dependence, uncomplicated Status: Acute - Plan 68-year-old female who presented with acute encephalopathy likely secondary to significant uremia in addition to narcotics. Chest pain patient reports sensation of something sitting on her chest with associated nausea and vomiting patient with elevated but flat troponins, likely secondary to renal failure Jerald Trops are elevated but relatively flat. May be due to rhabdomyolysis. - Cardiology following, appreciate assistance. s/p unremarkable stress test. Echo pending. DW Dr. Davis, if echocardiogram is negative patient may be discharged. - NTG prn chest pain - Protonix 40mg daily - continue to monitor on telemetry Toxic metabolic encephalopathy: Uremia and overmedicated with narcotics. - Head CT with no acute findings. - Encephalopathy resolved after dialysis. Since seems to be at baseline. End-stage renal disease on hemodialysis: She admitted to having some issues with compliance at times reported "she falls asleep" - Overmedication with narcotics is likely contributing. Discussed this with the patient at length. She is not receptive to this. - Advised the patient to be compliant with dialysis. - Appreciate nephrology input. Dialysis as scheduled. - Hyperkalemia resolved with dialysis. Traumatic Rhabdomyolysis s/p fall: - Improving. Continue to follow labs. - Encourage po intake - continue with PT, recommending rehab at discharge. CM consulted to assist with discharge planning. Ascending abdominal aortic aneurysm: - patient will need to follow up as outpatient Narcotic dependence: She reports chronic pain for which is prescribed Morphine SR 30mg q12h and Percocet 10/325mg q6h. advised the patient that she should not be on any long-acting medications especially given her end-stage renal disease on hemodialysis and she has not been compliant. Patient is not receptive to decreasing her pain medications. Will keep Percocet low-dose as needed to avoid withdrawal. Patient was counseled at length. DVT Prophylaxis: Heparin sq Code Status: Full Discussed Condition With: patient, nursing staff, Dr. Davis, Dr. Guerra Discharge Planning: Plan to discharge to home later today with [facility] pending echocardiogram results.
--- NOTE | 2018-08-06 08:49 | P.DCO ---
- Diagnosis (1) Risk for falls Status: Acute (2) Gait instability Status: Acute (3) Generalized weakness Status: Acute (4) Encephalopathy Status: Acute (5) ESRD (end stage renal disease) on dialysis Status: Acute (6) Rhabdomyolysis Status: Acute - Physical Therapy Order: Evaluate and treat, Improve ambulation, Strength and gait training - Occupational Therapy Order: Evaluate and treat, Improve ADL, Gross motor coordination, Fine motor coordination - Home Health Nursing Order: Medical education, Signs/symptoms of disease process, Medication education-adverse effect, Nursing assessment with vital signs - Case Management Consult Case Management Consult-Home Health: Yes - Certification I have seen patient Dasha Andrew on 08/06/18. My clinical findings support the need for the requested home health care services because: Limited mobility due to disease progression, Patient has SOB, Deconditioned with increased weakness, Limited ability to care for self, Impaired cognition/ judgement, High risk of falls I certify that my clinical findings support that this patient is homebound because: Post-op weakness, Impaired cognitive ability/safety, Unsteady gait/balance, Unsafe to leave home unassisted, Unable to use public transportation, Poor cardiac reserve
[2018-08-06] MEDS ORDERED: Regadenoson Inj 0.4 MG/5 ML Syringe IV.PUSH ONE (09:35)
[2018-08-06] MEDS: Heparin - SQ 10,000 UNITS/ML Vial SQ SCH ×2 (11:07→20:21)
[2018-08-06] MEDS: Senna/Docusate Sodium 8.6/50 MG Tablet PO SCH ×2 (11:07→20:21)
--- NOTE | 2018-08-06 11:11 | NM ---
EXAM DATE: 08/06/2018 10:38 AM EST AGE/SEX: 68 years / Female INDICATIONS:Angina. Coronary arteriosclerosis Substernal chest pain. CLINICAL DATA: This is the patient's initial encounter. Patient reports that signs and symptoms have been present for 1 day and indicates a pain score of 4/10. MEDICAL/SURGICAL HISTORY: Diabetes mellitus type II. Renal disease, end stage. Ascending aorti c aneurysm. Fusion, cervical. COMPARISON: No prior exams available for comparison. DOSE: 8.5 mCi Tc 99m Myoview at rest 25.4 mCi [id number] at stress 0.4 mg Lexiscan STRESS SYMPTOMS: Dyspnea and nausea. EJECTION FRACTION: 52 % TECHNIQUE: The patient underwent pharmacologic stress with infusion of prescribed dose. Continuous ECG tracing was monitored during stress. Gated SPECT imaging was performed after stress and conventi onal SPECT imaging was performed at rest. The examination was performed on a SPECT/CT scanner, both attenuation and non-corrected datasets were reviewed. FINDINGS: Distribution: The maximum perfused segment at stress is in the septal wall. Perfusion Study: The pattern of perfusion at stress is within normal limits. Gated Study: There are intact wall motion and wall thickening without hypokinetic or dyskinetic segm ents. The ejection fraction is calculated at 52%. RISK CATEGORY: Low (<1% Annual Motality Rate) CONCLUSION: Negative examination. Electronically signed by: Beau Abebe MD 08/06/2018 11:10 AM EST
--- NOTE | 2018-08-06 13:29 | P.PNNP ---
Subjective Interval history: Pt remains quite tearful today. Apparently was refusing SNF yesterday and wanted to go home with [facility], but is now wanting to consider SNF now as she is concerned about her continued weakness. Physical Exam Vital signs: Vital Signs 08/05/18 14:00 08/05/18 18:00 08/05/18 20:00 Temperature 98 F 98.1 F 98.5 F Pulse Rate 73 72 71 Respiratory Rate 16 16 18 Blood Pressure 169/76 H 153/81 H 152/78 H Pulse Oximetry 95 95 08/06/18 00:00 08/06/18 04:00 08/06/18 08:00 Temperature 98.5 F 98.2 F 98.2 F Pulse Rate 70 64 70 Respiratory Rate 18 18 16 Blood Pressure 133/60 148/69 H 152/70 H Pulse Oximetry 96 95 94 L 08/06/18 12:00 Temperature 98.0 F Pulse Rate 67 Respiratory Rate 18 Blood Pressure 165/76 H Pulse Oximetry 93 L Intake & Output 08/05/18 08/06/18 08/06/18 18:59 06:59 18:59 Intake Total 480 / 480 Output Total 1999 Balance -1999 480 / 480 Weight 72.1 kg Intake: Oral 480 / 480 Output: Hemodialysis Amount 1999 Other: Date of Last Bowel Movement 08/04/18 - Constitutional no acute distress - Routine HEENT Exam Head: Present: normocephalic - Routine Neck Exam Present: supple - Routine Respiratory Exam Present: CTA bilaterally - Routine Cardiovascular Exam Present: RRR, S1, S2, murmur - Routine Abdominal Exam Present: soft - Urinary Catheter Management Straight Cath placed during this visit: no Assessment and Plan - Assessment (1) ESRD (end stage renal disease) on dialysis Code(s): N18.6 - End stage renal disease; Z99.2 - Dependence on renal dialysis Plan: Completed HD 3 days in a row. Off today. Ty ordered by primary Next HD tomorrow to keep on MWF schedule. I do feel that it is within her best interest to go to a SNF given her issues regarding weakness and falling. Appreciate CM assistance with this. She was initially quite hesitant, but was willing to hear more about it by end of conversation. She will need assistance with transportation at discharge including from the SNF to [facility]. This was conveyed to in house CM as well as our outpatient SW. We also talked quite a bit more regarding her discharge from [facility]. She initially had voiced to me yesterday that she did not want to come back to our unit at discharge, but today says this is more related to embarrassment about her recent behavior and pride. She was advised that although she is being discharged, we will continue to provide care for the next 30 days as well as help her transition to a new dialysis facility. She was understanding of this. Patient was counseled again regarding risks associated with noncompliance with dialysis treatments as she has been counseled in the past. (2) Noncompliance with renal dialysis Code(s): Z91.15 - Patient's noncompliance with renal dialysis Status: Acute Plan: The patient is indicating to me that she will be compliant with her dialysis treatments from now on however she has done so in the past also. Patient has not been following my medical advice and counseling. She was therefore advised that she will receive written notification that the our patient physician relationship will be terminated with nephrology care being provided by myself for an additional 30 days if required but not beyond that. She was advised that she can work with the social human services assistants who will be contacting her in regard to finding another wind technician if she requires additional help doing so. I also advised her indicating that she does have a dialysis facility to return to after discharge from this admission under my care for the present with the above -mentioned course of action. (3) Acidosis, metabolic Code(s): E87.2 - Acidosis Status: Acute Plan: Improved with dialysis. (4) Hyperkalemia Code(s): E87.5 - Hyperkalemia Status: Acute - Plan Resolved with dialysis.
--- NOTE | 2018-08-06 15:29 | ECG ---
Date Performed: 08/05/2018 Time Performed: 14:48:40 PTAGE: 68 years EKG: Sinus rhythm NORMAL ECG PREVIOUS TRACING : 08/05/2018 10.10 Since the previous tracing, no significant change noted DOCTOR: Brittnee Prater Interpretating Date/Time 08/06/2018 15:28:37
--- NOTE | 2018-08-06 15:29 | ECG ---
Date Performed: 08/05/2018 Time Performed: 20:29:35 PTAGE: 68 years EKG: Sinus rhythm NORMAL ECG PREVIOUS TRACING : 08/05/2018 14.48 Since the previous tracing, no significant change noted DOCTOR: Brittnee Prater Interpretating Date/Time 08/06/2018 15:28:44
--- NOTE | 2018-08-06 17:48 | P.DS ---
Date of admission: 08/03/18 21:52 Primary care physician: Viri Clark MD Attending physician on discharge: Trev Guerra Anticipated date of discharge: 08/06/18 Brief History from admission: This is a 68-year-old female with a PMH of HTN, ESRD on HD M// and Narcotic Dependence who was brought to the ER by EMS for AMS. Per report, Son called EMS due to worsening mental status and recurrent falls, w/ concern for overmedication of her prescribed narcotics. Pt confused, but able to provide some history. Tells me she follows w/ Dr. Aguilar as outpatient, but has missed last 5 dialysis sessions because "I fell asleep". Denies any complaints at this time except for pain "all over", requesting her home pain medications. On arrival, BP 146/74, HR 118, O2 sat 96% on RA. CBC essentially unremarkable. K + 6.1. Creatinine 12.97. CPK 7960. Troponin 0 0.32. UA negative for UTI. CXR with no acute findings. CT Head with no acute findings. Dr. Aguilar contacted by ER physician, plan is for emergent dialysis this evening. Patient update on day of discharge: Follow up on patient with ESRD on HD MWF, chest pain. Patient seen and examined. Patient says she feels much better this morning. She does not have any nausea or vomiting. She does not have any chest pain at this time. She is refusing SNF. She is insisting on going home with [facility]. DS: Diagnosis - Discharge Diagnosis (1) Traumatic rhabdomyolysis Status: Acute (2) Encephalopathy Status: Acute (3) ESRD (end stage renal disease) on dialysis Status: Acute (4) Rhabdomyolysis Status: Acute (5) Electrolyte abnormality Status: Acute (6) Toxic metabolic encephalopathy Status: Acute (7) Hyperkalemia Status: Acute (8) Chest pain Status: Acute (9) Elevated troponin Status: Acute DS: Summary Hospital Course: Patient admitted with toxic encephalopathy secondary to uremia and overmedication with narcotics. Patient with hx of noncompliance. Patient also with traumatic rhabdomyolysis s/p fall with CK of 7960. Head CT was negative. Patient was seen in consultation by Nephrology and resumed on MWF HD schedule. Patients rhabdomyolysis improved. She developed complaints of chest pain with elevated troponins and was seen in consultation by Cardiology. Patient underwent a negative stress test. Echocardiogram was pending at time of discharge. Patient reported chronic pain for which is prescribed Morphine SR 30mg q12h and Percocet 10/325mg q6h. advised the patient that she should not be on any long-acting medications especially given her end-stage renal disease on hemodialysis and she has not been compliant. Patient is not receptive to decreasing her pain medications. Will keep Percocet low-dose as needed to avoid withdrawal. Patient was counseled at length. Patient improved clinically. PT recommended rehab which patient refused. CM assisted with setting up patient with home health care. She was cleared for discharge from speciality services. Patient reached the maximum benefit from her hospitalization. - Time Spent with Patient Total time spent providing and/or coordinating discharge services: Greater than 30 minutes - Quality: VTE Deep Vein Thrombosis/Pulmonary Embolism Present on Admission: No Exam Vital signs: Vital Signs 08/05/18 18:00 08/05/18 20:00 08/06/18 00:00 Temperature 98.1 F 98.5 F 98.5 F Pulse Rate 72 71 70 Respiratory Rate 16 18 18 Blood Pressure 153/81 H 152/78 H 133/60 Pulse Oximetry 95 95 96 08/06/18 04:00 08/06/18 08:00 08/06/18 12:00 Temperature 98.2 F 98.2 F 98.0 F Pulse Rate 64 70 67 Respiratory Rate 18 16 18 Blood Pressure 148/69 H 152/70 H 165/76 H Pulse Oximetry 95 94 L 93 L 08/06/18 16:00 Temperature 97.4 F L Pulse Rate 67 Respiratory Rate 18 Blood Pressure 163/79 H Pulse Oximetry 97 Intake & Output 08/05/18 08/06/18 08/06/18 18:59 06:59 18:59 Intake Total 480 / 480 Output Total 1999 Balance -1999 480 / 480 Weight 72.1 kg Intake: Oral 480 / 480 Output: Hemodialysis Amount 1999 Other: Date of Last Bowel Movement 08/04/18 08/04/18 Narrative: GENERAL: Chronically ill-appearing female in no acute distress. Awake and alert. Appears comfortable lying in bed. SKIN: Warm and dry. HEENT: Atraumatic. Normocephalic. EOMI. No scleral icterus. No injection or drainage. No nasal bleeding or discharge. Mucous membranes pink and moist. NECK: Trachea midline. CARDIOVASCULAR: Regular rate and rhythm. +murmur auscultated. RESPIRATORY: No accessory muscle use. Breath sounds equal bilaterally. Mild expiratory wheezing noted on exam. GASTROINTESTINAL: Abdomen soft, non-tender, nondistended. Hepatic and splenic margins not palpable. MUSCULOSKELETAL: Extremities without clubbing, cyanosis, or edema. No obvious deformities. NEUROLOGICAL: Awake and alert. No obvious cranial nerve deficits. Motor grossly within normal limits. Able to move all extremities spontaneously. Normal speech. PSYCHIATRIC: Calm and cooperative. Results Procedures completed during hospitalization: Dasha Andrew nicholas perf pharm SPECT w/ef Signed EXAM DATE: 08/06/2018 10:38 AM EST AGE/SEX: 68 years / Female INDICATIONS:Angina. Coronary arteriosclerosis Substernal chest pain. CLINICAL DATA: This is the patient's initial encounter. Patient reports that signs and symptoms have been present for 1 day and indicates a pain score of 4/ 10. MEDICAL/SURGICAL HISTORY: Diabetes mellitus type II. Renal disease, end stage. Ascending aortic aneurysm. Fusion, cervical. COMPARISON: No prior exams available for comparison. DOSE: 8.5 mCi Tc 99m Myoview at rest 25.4 mCi [id number] at stress 0.4 mg Lexiscan STRESS SYMPTOMS: Dyspnea and nausea. EJECTION FRACTION: 52 % TECHNIQUE: The patient underwent pharmacologic stress with infusion of prescribed dose. Continuous ECG tracing was monitored during stress. Gated SPECT imaging was performed after stress and conventional SPECT imaging was performed at rest. The examination was performed on a SPECT/CT scanner, both attenuation and non-corrected datasets were reviewed. FINDINGS: Distribution: The maximum perfused segment at stress is in the septal wall. Perfusion Study: The pattern of perfusion at stress is within normal limits. Gated Study: There are intact wall motion and wall thickening without hypokinetic or dyskinetic segments. The ejection fraction is calculated at 52% . RISK CATEGORY: Low (<1% Annual Motality Rate) CONCLUSION: Negative examination. Electronically signed by: Beau Abebe MD 08/06/2018 11:10 AM EST Labs on day of discharge: Labs from last 24 hours 08/06/18 08/05/18 08/05/18 04:37 22:22 16:25 WBC 11.6 H RBC 2.93 L Hgb 10.1 L Hct 29.7 L MCV 101.4 H MCH 34.3 H MCHC 33.9 RDW 14.5 Plt Count 190 MPV 8.8 Neut % (Auto) 57.6 Lymph % (Auto) 26.0 [place] % (Auto) 13.2 H Eos % (Auto) 2.5 Baso % (Auto) 0.7 Neut # (Auto) 6.7 Lymph # (Auto) 3.0 [place] # (Auto) 1.5 H Eos # (Auto) 0.3 Baso # (Auto) 0.1 WBC Differential . Differential Comment Auto diff final Sodium 140 Potassium 3.0 L Chloride 102 Carbon Dioxide 30.6 Anion Gap 7 BUN 17 Creatinine 3.86 H Estimated GFR 12 L Random Glucose 207 H Calcium 7.4 L* Calcium Adj for Albumin 8.4 L Phosphorus 2.2 L Total Creatine Kinase 1170 H 1468 H CK-MB (CK-2) 6.5 H 7.7 H CK-MB (CK-2) % 0.6 0.5 Troponin I 0.31 H 0.35 H Albumin 2.7 L Preliminary micro results at discharge 08/03/18 19:55 Aerobic Blood Culture - Preliminary Blood - Peripheral No growth in 3 days Anaerobic Blood Culture - Preliminary No growth in 3 days 08/03/18 19:50 Aerobic Blood Culture - Preliminary Blood - Peripheral No growth in 3 days Anaerobic Blood Culture - Preliminary No growth in 3 days - Impressions ITS Impressions Head CT 08/03/18 19:41 CONCLUSION: 1. No acute intracranial abnormality demonstrated. 2. Chronic white matter changes are again seen. . Chest X-Ray 08/05/18 00:00 CONCLUSION: Mild cardiomegaly. Stable appearance of the examination is compared to previous dated 08/03/2018. No acute abnormality identified. Myocardial Perfusion Scan Nuc Med 08/06/18 00:00 CONCLUSION: Negative examination. Discharge Plan - Discharge Disposition Patient Disposition: W/Home Health Service - Discharge Condition Condition: Stable - Discharge Order Discharge Orders: Discharge Order (Routine); Ordered 08/06/18 Ordered By: Celine Willoughby - Discharge Details Discharge Comment: Discharge pending cardiac workup and clearance. Lexiscan and echocardiogram must be completed and read prior to discharge. Also must have outpatient HD set up - Physicians Team Primary Care Provider: Viri Clark Attending Provider: Loy Martines Other Providers: Arabella Aguilar MD ; Joey Davis, DO
--- NOTE | 2018-08-06 19:16 | ECHRPT ---
Indication: CORONARY ATHEROSCLEROSIS CONCLUSIONS Mildly dilated left ventricle. Mild concentric left ventricular hypertrophy. The left ventricular systolic function is normal with an estimated ejection fraction in the range of 60-65%. No regional wall motion abnormalities are present. Dilated proximal ascending aorta 4.6 cm Mitral annular calcification is present. Trace mitral valve regurgitation. Aortic valve sclerosis is present. Mild aortic valve regurgitation. BP: / HR: Rhythm: Technical Quality: FINDINGS LEFT VENTRICLE Mildly dilated left ventricle. Mild concentric left ventricular hypertrophy. The left ventricular systolic function is normal with an estimated ejection fraction in the range of 60-65%. No regional wall motion abnormalities are present. RIGHT VENTRICLE Normal right ventricular size and systolic function. LEFT ATRIUM The left atrial size is normal. RIGHT ATRIUM The right atrial size is normal. ATRIAL SEPTUM Normal atrial septal thickness without atrial level shunting by limited color doppler interrogation. AORTA Dilated proximal ascending aorta 4.6 cm MITRAL VALVE Mild thickening of the mitral valve leaflets. Mitral annular calcification is present. Trace mitral valve regurgitation. AORTIC VALVE Trileaflet aortic valve. No aortic valve stenosis. Aortic valve sclerosis is present. Mild aortic valve regurgitation. TRICUSPID VALVE Structurally normal tricuspid valve. No tricuspid valve stenosis or regurgitation. PULMONARY VALVE The pulmonary valve is not well visualized. VESSELS The inferior vena cava is normal in size. PERICARDIUM No pericardial effusion. Hawk Garcia (Electronically Signed) Final Date:06 August 2018 19:15
--- NOTE | 2018-08-06 22:29 | P.PNCA ---
Subjective Interval history: No events overnight More cheerful today No chest pain Medications and Allergies Active Medications: Active Medications Acetaminophen (Tylenol) 650 mg PO Q4H PRN PRN Reason: Temp > 100.4 Al Hydroxide/Mg Hydroxide (Milk Of Jeffrey Liq) 30 ml PO Q12H PRN PRN Reason: Mild Constipation Albuterol (Duoneb Neb (Malina)) 1 ampul NEB Q6HR WHILE AWAKE NEB [facility] Last Admin: 08/06/18 21:00 Dose: 1 ampul Bisacodyl (Dulcolax Supp) 10 mg RECTAL DAILY PRN PRN Reason: SEVERE CONSITIPATION Chlorhexidine Gluconate (Chlorhexidine 2% Cloth) 3 pack TOPICAL DAILY@0400 MALINA Stop: 08/09/18 03:59 Last Admin: 08/06/18 04:00 Dose: Not Given Chlorhexidine Gluconate (Chlorhexidine 2% Cloth) 3 pack TOPICAL DAILY@0400 PRN PRN Reason: Extra cloth needed Stop: 08/09/18 03:59 Clonidine HCl (Catapres) 0.1 mg PO UNSCH PRN PRN Reason: SEE LABEL COMMENTS Diphenhydramine HCl (Benadryl) 25 mg PO UNSCH PRN PRN Reason: SEE LABEL COMMENTS Gelatin (Gelfoam 12 Mm/7 Mm Topical) 1 foam TOPICAL PRN PRN PRN Reason: help stop bleeding from site Last Admin: 08/04/18 01:50 Dose: 1 foam Heparin Sodium (Porcine) (Heparin Inj) 5,000 units SQ Q12H [facility] Last Admin: 08/06/18 20:21 Dose: 5,000 units Heparin Sodium (Porcine) (Heparin Inj) 8,000 units OTHER WITH DIALYSIS PRN PRN Reason: for machine prime Sodium Chloride (Ns Inj) 1,000 mls @ 0 mls/hr OTHER .Q0M PRN PRN Reason: for prime and rinse back Sodium Chloride (Ns Inj) 1,000 mls @ 200 mls/hr OTHER .Q5H PRN PRN Reason: for dialyzer flush PRN Sodium Chloride (Ns Inj) 1,000 mls @ 0 mls/hr IV.CONT .Q0M PRN PRN Reason: hypotension / volume replace Albumin Human (Flexbumin 25% Inj) 100 mls @ 60 mls/hr IV.SIG WITH DIALYSIS PRN PRN Reason: hypotension / volume replace Lactulose (Lactulose Liq) 30 ml PO DAILY PRN PRN Reason: SEVERE CONSITIPATION Nitroglycerin (Nitrostat Sl) 0.4 mg SL Q5M PRN PRN Reason: CHEST PAIN Ondansetron HCl (Zofran Inj) 4 mg IV.PUSH Q6H PRN PRN Reason: NAUSEA OR VOMITING Ondansetron HCl (Zofran Inj) 4 mg IV.PUSH UNSCH PRN PRN Reason: NAUSEA OR VOMITING Oxycodone/Acetaminophen (Percocet 5/325 Mg) 1 tab PO Q4H PRN PRN Reason: PAIN 1-10 Last Admin: 08/06/18 20:20 Dose: 1 tab Pantoprazole Sodium (Protonix) 40 mg PO DAILY [facility] Last Admin: 08/06/18 11:07 Dose: Not Given Senna/Docusate Sodium (Erika-Colace) 1 tab PO BID [facility] Last Admin: 08/06/18 20:21 Dose: 1 tab Sennosides (Senokot) 17.2 mg PO Q12H PRN PRN Reason: Moderate Constipation Sodium Chloride (Ns Flush) 5 ml IV.FLUSH PRN PRN PRN Reason: flush each lumen during HD Allergies Allergy/AdvReac Type Severity Reaction Status Date / Time butorphanol Allergy Severe "NERVE Verified 05/30/18 10:33 ENDING ON FIRE" ketorolac Allergy Severe "NERVE ON Verified 05/30/18 10:33 FIRE" Home Medications Medication Instructions Recorded Confirmed Type calcium acetate mg PO TID 05/06/18 History dextroamphetamine-amphetamine mg PO BID 05/06/18 History [Adderall] furosemide [Lasix] mg PO DAILY 05/06/18 History morphine [MorphaBond ER] 30 mg PO Q12H 05/06/18 08/03/18 History oxycodone-acetaminophen [Percocet] tab PO Q6H PRN 05/06/18 History Physical Exam Vital signs: Vital Signs 08/06/18 00:00 08/06/18 04:00 08/06/18 08:00 Temperature 98.5 F 98.2 F 98.2 F Pulse Rate 70 64 70 Respiratory Rate 18 18 16 Blood Pressure 133/60 148/69 H 152/70 H Pulse Oximetry 96 95 94 L 08/06/18 12:00 08/06/18 16:00 08/06/18 18:45 Temperature 98.0 F 97.4 F L 98.6 F Pulse Rate 67 67 68 Respiratory Rate Blood Pressure 165/76 H 163/79 H 173/81 H Pulse Oximetry 93 L 97 96 08/06/18 20:00 08/06/18 21:01 Temperature Pulse Rate 82 Respiratory Rate 19 Blood Pressure Pulse Oximetry 98 Intake & Output 08/06/18 08/06/18 08/07/18 06:59 18:59 06:59 Intake Total 480 / 480 800 / 800 Balance 480 / 480 800 / 800 Weight 72.1 kg Intake: Oral 480 / 480 800 / 800 Other: # Voids 1 Date of Last Bowel Movement 08/04/18 08/04/18 Narrative: GENERAL: Chronically ill-appearing female in no acute distress. Awake and alert. Appears comfortable lying in bed. SKIN: Warm and dry. HEENT: Atraumatic. Normocephalic. EOMI. No scleral icterus. No injection or drainage. No nasal bleeding or discharge. Mucous membranes pink and moist. NECK: Trachea midline. CARDIOVASCULAR: Regular rate and rhythm. +murmur auscultated. RESPIRATORY: No accessory muscle use. Breath sounds equal bilaterally. Mild expiratory wheezing noted on exam. GASTROINTESTINAL: Abdomen soft, non-tender, nondistended. Hepatic and splenic margins not palpable. MUSCULOSKELETAL: Extremities without clubbing, cyanosis, or edema. No obvious deformities. NEUROLOGICAL: Awake and alert. No obvious cranial nerve deficits. Motor grossly within normal limits. Able to move all extremities spontaneously. Normal speech. PSYCHIATRIC: Calm and cooperative. - Urinary Catheter Management Straight Cath placed during this visit: no Results 08/06/18 04:37 08/05/18 22:22 Cardiac Enzymes 08/05/18 08/05/18 08/05/18 Range/Units 05:37 09:55 16:25 CK-MB (CK-2) 13.7 H 11.1 H 7.7 H (0.5-3.6) ng/mL Troponin I 0.43 H D 0.35 H (0.02-0.05) ng/mL 08/05/18 Range/Units 22:22 CK-MB (CK-2) 6.5 H (0.5-3.6) ng/mL Troponin I 0.31 H (0.02-0.05) ng/mL CBC 08/05/18 08/06/18 Range/Units 09:55 04:37 WBC 8.9 11.6 H (4.0-11.0) th/mm3 RBC 2.91 L 2.93 L (4.00-5.30) mil/mm3 Hgb 10.2 L 10.1 L (11.6-15.3) gm/dL Hct 30.2 L 29.7 L (35.0-46.0) % Plt Count 196 190 (150-450) th/mm3 Neut # (Auto) 6.3 6.7 (1.8-7.7) th/mm3 Lymph # (Auto) 1.2 3.0 (1.0-4.8) th/mm3 Kimble # (Auto) 1.3 H 1.5 H (0.0-0.9) th/mm3 Eos # (Auto) 0.1 0.3 (0.0-0.4) th/mm3 Baso # (Auto) 0.1 0.1 (0.0-0.2) th/mm3 Comprehensive Metabolic Panel 08/05/18 08/05/18 Range/Units 05:37 22:22 Sodium 143 140 (136-145) meq/L Potassium 3.4 L 3.0 L (3.5-5.1) meq/L Chloride 102 102 (98-107) meq/L Carbon Dioxide 31.3 30.6 (21.0-32.0) meq/L BUN 31 H 17 (7-18) mg/dL Creatinine 4.95 H 3.86 H (0.50-1.00) mg/dL Calcium 7.4 L* 7.4 L* (8.5-10.1) mg/dL Total Protein 6.5 (6.4-8.2) g/dL Albumin 2.7 L (3.4-5.0) g/dL Intake and Output 08/06/18 08/06/18 08/06/18 06:59 14:59 22:59 Intake Total 480 / 480 800 / 800 Balance 480 / 480 800 / 800 Intake: Oral 480 / 480 800 / 800 Other: # Voids 1 Date of Last Bowel Movement 08/04/18 Weight 72.1 kg - Imaging and Cardiology Imaging: Impressions Chest X-Ray 08/05/18 00:00 CONCLUSION: Mild cardiomegaly. Stable appearance of the examination is compared to previous dated 08/03/2018. No acute abnormality identified. Myocardial Perfusion Scan Nuc Med 08/06/18 00:00 CONCLUSION: Negative examination. Assessment and Plan - Assessment (1) Encephalopathy Code(s): G93.40 - Encephalopathy, unspecified Status: Acute (2) ESRD (end stage renal disease) on dialysis Code(s): N18.6 - End stage renal disease; Z99.2 - Dependence on renal dialysis Status: Acute (3) Rhabdomyolysis Code(s): M62.82 - Rhabdomyolysis Status: Acute (4) Elevated troponin Code(s): R74.8 - Abnormal levels of other serum enzymes Status: Acute (5) Narcotic dependence Code(s): F11.20 - Opioid dependence, uncomplicated Status: Acute (6) Noncompliance with renal dialysis Code(s): Z91.15 - Patient's noncompliance with renal dialysis Status: Acute (7) Generalized weakness Code(s): R53.1 - Weakness Status: Acute (8) Chest pain Code(s): R07.9 - Chest pain, unspecified Status: Acute - Plan 1) ESRD on HD 2) Non-compliance with HD 3) Chest pain Atypical Nuclear stress test negative for ischemia EF 55-60% 4) Ascending aortic aneurysm Previous CT showing 4.7 x 4.5cm, stable Echo showing 4.7cm Needs surveilance followup Per notes from [facility], Dr. Roper was arranging for her to follow up with Dr. Rinaldi at [facility] 5) No further cardiovascular work up necessary 6) Elevated troponin Most likely due to rhabdomyolysis
[2018-08-07] MEDS: Chlorhexidine Gluconate 2% 1 Pack (2 Cloths) TOPICAL SCH (05:23)
[2018-08-07 06:54] LABS: Baso # (Auto) 0.1 th/mm3 (0.0-0.2); Baso % (Auto) 0.4 % (0.0-2.0); Eos # (Auto) 0.5 th/mm3 (0.0-0.4); Eos % (Auto) 3.9 % (0.0-4.0); Hemoglobin 9.4 gm/dL (11.6-15.3); Lymph % (Auto) 23.5 % (9.0-44.0); Mean Corpuscular HGB Conc 33.7 % (32.0-36.0); Mean Corpuscular Hemoglobin 34.7 pg (27.0-34.0); Mean Corpuscular Volume 102.9 fL (80.0-100.0); Mean Platelet Volume 9.3 fL (7.0-11.0); Mono # (Auto) 1.5 th/mm3 (0.0-0.9); Mono % (Auto) 11.5 % (0.0-8.0); Neut # (Auto) 7.8 th/mm3 (1.8-7.7); Neut % (Auto) 60.7 % (16.0-70.0); Platelet Count 193 th/mm3 (150-450); Red Blood Count 2.72 mil/mm3 (4.00-5.30); Red Cell Distribution Width 14.4 % (11.6-17.2); White Blood Count 12.8 th/mm3 (4.0-11.0)
[2018-08-07 07:29] LABS: Albumin 2.5 g/dL (3.4-5.0); Calcium 7.4 mg/dL (8.5-10.1); Carbon Dioxide 29.3 meq/L (21.0-32.0); Phosphorus 2.7 mg/dL (2.5-4.9); Potassium 3.4 meq/L (3.5-5.1)
--- NOTE | 2018-08-07 08:44 | P.PN ---
Subjective Interval history: Follow up on patient with ESRD on HD MWF, chest pain. Patient seen and examined. Patient is getting ready to go down for HD. She denies any chest pain this morning. She denies any N/V or abdominal pain. She is tolerating diet. She denies any dyspnea. She is asking for a prescription for blood pressure cuff. Physical Exam Vital signs: Vital Signs 08/06/18 12:00 08/06/18 16:00 08/06/18 18:45 Temperature 98.0 F 97.4 F L 98.6 F Pulse Rate 67 67 68 Respiratory Rate 18 18 18 Blood Pressure 165/76 H 163/79 H 173/81 H Pulse Oximetry 93 L 97 96 08/06/18 20:00 08/06/18 21:01 08/07/18 00:05 Temperature 98.5 F Pulse Rate 82 70 Respiratory Rate 16 19 16 Blood Pressure 159/70 H Pulse Oximetry 98 97 08/07/18 04:43 08/07/18 08:27 Temperature 98.4 F Pulse Rate 64 68 Respiratory Rate 16 17 Blood Pressure 140/65 Pulse Oximetry 97 97 Intake & Output 08/06/18 08/07/18 08/07/18 18:59 06:59 18:59 Intake Total 800 / 800 360 / 360 Balance 800 / 800 360 / 360 Intake: Oral 800 / 800 360 / 360 Other: # Voids 1 0 Date of Last Bowel Movement 08/04/18 08/04/18 # Bowel Movements 0 Narrative: GENERAL: Chronically ill-appearing female. Awake and alert. Appears comfortable sitting up in bed eating breakfast. Not in any acute distress. SKIN: Warm and dry. No generalized rash. HEENT: Atraumatic. Normocephalic. EOMI. No scleral icterus. No injection or drainage. No nasal bleeding or discharge. Mucous membranes pink and moist. NECK: Trachea midline. CARDIOVASCULAR: Regular rate and rhythm. +murmur auscultated. RESPIRATORY: No accessory muscle use. Breath sounds equal bilaterally. Clear to auscultation. GASTROINTESTINAL: Abdomen soft, non-tender, nondistended. +BS. MUSCULOSKELETAL: Extremities without clubbing, cyanosis, or edema. No obvious deformities. NEUROLOGICAL: Awake and alert. No obvious cranial nerve deficits. Motor grossly within normal limits. Able to move all extremities spontaneously. Normal speech. PSYCHIATRIC: Calm and cooperative. - Urinary Catheter Management Straight Cath placed during this visit: no Results - Labs CBC & Chem 7: 08/07/18 05:06 08/07/18 05:06 Laboratory Results - last 24 hr 08/07/18 08/07/18 05:06 05:06 WBC 12.8 H RBC 2.72 L Hgb 9.4 L Hct 28.0 L MCV 102.9 H MCH 34.7 H MCHC 33.7 RDW 14.4 Plt Count 193 MPV 9.3 Neut % (Auto) 60.7 Lymph % (Auto) 23.5 Henry % (Auto) 11.5 H Eos % (Auto) 3.9 Baso % (Auto) 0.4 Neut # (Auto) 7.8 H Lymph # (Auto) 3.0 Henry # (Auto) 1.5 H Eos # (Auto) 0.5 H Baso # (Auto) 0.1 WBC Differential . Differential Comment Auto diff final Sodium 139 Potassium 3.4 L Chloride 103 Carbon Dioxide 29.3 Anion Gap 7 BUN 34 H Creatinine 6.22 H Estimated GFR 7 L Random Glucose 154 H Calcium 7.4 L* Phosphorus 2.7 Albumin 2.5 L Microbiology 08/03/18 19:55 Blood - Peripheral Aerobic Blood Culture - Preliminary No growth in 3 days 08/03/18 19:55 Blood - Peripheral Anaerobic Blood Culture - Preliminary No growth in 3 days 08/03/18 19:50 Blood - Peripheral Aerobic Blood Culture - Preliminary No growth in 3 days 08/03/18 19:50 Blood - Peripheral Anaerobic Blood Culture - Preliminary No growth in 3 days - Imaging Impressions Myocardial Perfusion Scan Nuc Med 08/06/18 00:00 CONCLUSION: Negative examination. - Procedures Dasha Andrew nicholas perf pharm SPECT w/ef Signed EXAM DATE: 08/06/2018 10:38 AM EST AGE/SEX: 68 years / Female INDICATIONS:Angina. Coronary arteriosclerosis Substernal chest pain. CLINICAL DATA: This is the patient's initial encounter. Patient reports that signs and symptoms have been present for 1 day and indicates a pain score of 4/ 10. MEDICAL/SURGICAL HISTORY: Diabetes mellitus type II. Renal disease, end stage. Ascending aortic aneurysm. Fusion, cervical. COMPARISON: No prior exams available for comparison. DOSE: 8.5 mCi Tc 99m Myoview at rest 25.4 mCi [id number] at stress 0.4 mg Lexiscan STRESS SYMPTOMS: Dyspnea and nausea. EJECTION FRACTION: 52 % TECHNIQUE: The patient underwent pharmacologic stress with infusion of prescribed dose. Continuous ECG tracing was monitored during stress. Gated SPECT imaging was performed after stress and conventional SPECT imaging was performed at rest. The examination was performed on a SPECT/CT scanner, both attenuation and non-corrected datasets were reviewed. FINDINGS: Distribution: The maximum perfused segment at stress is in the septal wall. Perfusion Study: The pattern of perfusion at stress is within normal limits. Gated Study: There are intact wall motion and wall thickening without hypokinetic or dyskinetic segments. The ejection fraction is calculated at 52% . RISK CATEGORY: Low (<1% Annual Motality Rate) CONCLUSION: Negative examination. Electronically signed by: Beau Abebe MD 08/06/2018 11:10 AM EST Assessment and Plan - Assessment (1) Traumatic rhabdomyolysis Code(s): T79.6XXA - Traumatic ischemia of muscle, initial encounter Status: Acute (2) Encephalopathy Code(s): G93.40 - Encephalopathy, unspecified Status: Acute (3) ESRD (end stage renal disease) on dialysis Code(s): N18.6 - End stage renal disease; Z99.2 - Dependence on renal dialysis Status: Acute (4) Rhabdomyolysis Code(s): M62.82 - Rhabdomyolysis Status: Acute (5) Electrolyte abnormality Code(s): E87.8 - Other disorders of electrolyte and fluid balance, not elsewhere classified Status: Acute (6) Toxic metabolic encephalopathy Code(s): G92 - Toxic encephalopathy Status: Acute (7) Hyperkalemia Code(s): E87.5 - Hyperkalemia Status: Acute (8) Chest pain Code(s): R07.9 - Chest pain, unspecified Status: Acute (9) Elevated troponin Code(s): R74.8 - Abnormal levels of other serum enzymes Status: Acute - Plan 68-year-old female who presented with acute encephalopathy likely secondary to significant uremia in addition to narcotics. Chest pain, resolved patient reports sensation of something sitting on her chest with associated nausea and vomiting patient with elevated but flat troponins, likely secondary to renal failure Jerald Trops are elevated but relatively flat. May be due to rhabdomyolysis. - Cardiology following, appreciate assistance. s/p unremarkable stress test. Echo EF 60-65%, 4.6cm dilated proximal ascending aorta. DW Dr. Davis, patient may be discharged. - NTG prn chest pain - Protonix 40mg daily - continue to monitor on telemetry Toxic metabolic encephalopathy: Uremia and overmedicated with narcotics. - Head CT with no acute findings. - Encephalopathy resolved after dialysis. Since seems to be at baseline. End-stage renal disease on hemodialysis: She admitted to having some issues with compliance at times reported "she falls asleep" 08/07 patient going to HD this am - Overmedication with narcotics is likely contributing. Discussed this with the patient at length. She is not receptive to this. - Advised the patient to be compliant with dialysis. - Appreciate nephrology input. Dialysis as scheduled. - Hyperkalemia resolved with dialysis. Hypokalemia - management per Nephrology Traumatic Rhabdomyolysis s/p fall: - Improving. Continue to follow labs. - Encourage po intake - continue with PT, recommending rehab at discharge. CM consulted to assist with discharge planning. Ascending abdominal aortic aneurysm: - patient will need to follow up as outpatient Narcotic dependence: She reports chronic pain for which is prescribed Morphine SR 30mg q12h and Percocet 10/325mg q6h. advised the patient that she should not be on any long-acting medications especially given her end-stage renal disease on hemodialysis and she has not been compliant. Patient is not receptive to decreasing her pain medications. Will keep Percocet low-dose as needed to avoid withdrawal. Patient was counseled at length. Weakness Generalized deconditioning - PT advising rehab. Patient refusing SNF placement. Plan for discharge with [facility] PT/OT. DVT Prophylaxis: Heparin sq Code Status: Full Discussed Condition With: patient, nursing staff, Dr. Martines Discharge Planning: Medically cleared for discharge. CM assisting with discharge planning. Patient has been nonselective in her discharge plan. Discussed again at length at the bedside. We are recommending discharge to SNF to help with strength, endurance, safety. Patient is refusing d/c to SNF. Says she has too much to take care of at home. States her son has agreed to transport her to and from her appointments.
[2018-08-07] MEDS: Senna/Docusate Sodium 8.6/50 MG Tablet PO SCH (08:58)
[2018-08-07] MEDS: Heparin - SQ 10,000 UNITS/ML Vial SQ SCH (09:00)
--- NOTE | 2018-08-07 10:10 | P.PNNP ---
Physical Exam Vital signs: Vital Signs 08/06/18 12:00 08/06/18 16:00 08/06/18 18:45 Temperature 98.0 F 97.4 F L 98.6 F Pulse Rate 67 67 68 Respiratory Rate 18 18 18 Blood Pressure 165/76 H 163/79 H 173/81 H Pulse Oximetry 93 L 97 96 08/06/18 20:00 08/06/18 21:01 08/07/18 00:05 Temperature 98.5 F Pulse Rate 82 70 Respiratory Rate 16 19 16 Blood Pressure 159/70 H Pulse Oximetry 98 97 08/07/18 04:43 08/07/18 08:00 08/07/18 08:27 Temperature 98.4 F 97.2 F L Pulse Rate 64 78 68 Respiratory Rate 16 17 17 Blood Pressure 140/65 168/70 H Pulse Oximetry 97 95 97 Intake & Output 08/06/18 08/07/18 08/07/18 18:59 06:59 18:59 Intake Total 800 / 800 360 / 360 Balance 800 / 800 360 / 360 Intake: Oral 800 / 800 360 / 360 Other: # Voids 1 0 Date of Last Bowel Movement 08/04/18 08/04/18 # Bowel Movements 0 - Urinary Catheter Management Straight Cath placed during this visit: no Assessment and Plan - Assessment (1) ESRD (end stage renal disease) on dialysis Code(s): N18.6 - End stage renal disease; Z99.2 - Dependence on renal dialysis Plan: Completed HD 3 days in a row. Off today. KCl ordered by primary Next HD tomorrow to keep on MWF schedule. I do feel that it is within her best interest to go to a SNF given her issues regarding weakness and falling. Appreciate CM assistance with this. She was initially quite hesitant, but was willing to hear more about it by end of conversation. She will need assistance with transportation at discharge including from the SNF to [facility]. This was conveyed to in house CM as well as our outpatient SW. We also talked quite a bit more regarding her discharge from [facility]. She initially had voiced to me yesterday that she did not want to come back to our unit at discharge, but today says this is more related to embarrassment about her recent behavior and pride. She was advised that although she is being discharged, we will continue to provide care for the next 30 days as well as help her transition to a new dialysis facility. She was understanding of this. Patient was counseled again regarding risks associated with noncompliance with dialysis treatments as she has been counseled in the past. (2) Noncompliance with renal dialysis Code(s): Z91.15 - Patient's noncompliance with renal dialysis Status: Acute Plan: The patient is indicating to me that she will be compliant with her dialysis treatments from now on however she has done so in the past also. Patient has not been following my medical advice and counseling. She was therefore advised that she will receive written notification that the our patient physician relationship will be terminated with nephrology care being provided by myself for an additional 30 days if required but not beyond that. She was advised that she can work with the social service technician who will be contacting her in regard to finding another electric milkers installer if she requires additional help doing so. I also advised her indicating that she does have a dialysis facility to return to after discharge from this admission under my care for the present with the above -mentioned course of action. (3) Acidosis, metabolic Code(s): E87.2 - Acidosis Status: Acute Plan: Improved with dialysis. (4) Hyperkalemia Code(s): E87.5 - Hyperkalemia Status: Acute - Plan Resolved with dialysis.
--- NOTE | 2018-08-07 16:50 | P.PNCA ---
Subjective Interval history: No events overnight Walked with PT today Medications and Allergies Active Medications: Active Medications Acetaminophen (Tylenol) 650 mg PO Q4H PRN PRN Reason: Temp > 100.4 Al Hydroxide/Mg Hydroxide (Milk Of Jeffrey Warner) 30 ml PO Q12H PRN PRN Reason: Mild Constipation Albuterol (Duoneb Neb (Malina)) 1 ampul NEB Q6HR WHILE AWAKE NEB [facility] Last Admin: 08/07/18 12:30 Dose: Not Given Bisacodyl (Dulcolax Supp) 10 mg RECTAL DAILY PRN PRN Reason: SEVERE CONSITIPATION Chlorhexidine Gluconate (Chlorhexidine 2% Cloth) 3 pack TOPICAL DAILY@0400 MALINA Stop: 08/09/18 03:59 Last Admin: 08/07/18 05:23 Dose: Not Given Chlorhexidine Gluconate (Chlorhexidine 2% Cloth) 3 pack TOPICAL DAILY@0400 PRN PRN Reason: Extra cloth needed Stop: 08/09/18 03:59 Clonidine HCl (Catapres) 0.1 mg PO UNSCH PRN PRN Reason: SEE LABEL COMMENTS Diphenhydramine HCl (Benadryl) 25 mg PO UNSCH PRN PRN Reason: SEE LABEL COMMENTS Gelatin (Gelfoam 12 Mm/7 Mm Topical) 1 foam TOPICAL PRN PRN PRN Reason: help stop bleeding from site Last Admin: 08/04/18 01:50 Dose: 1 foam Heparin Sodium (Porcine) (Heparin Inj) 5,000 units SQ Q12H [facility] Last Admin: 08/07/18 09:00 Dose: 5,000 units Heparin Sodium (Porcine) (Heparin Inj) 8,000 units OTHER WITH DIALYSIS PRN PRN Reason: for machine prime Sodium Chloride (Ns Inj) 1,000 mls @ 0 mls/hr OTHER .Q0M PRN PRN Reason: for prime and rinse back Sodium Chloride (Ns Inj) 1,000 mls @ 200 mls/hr OTHER .Q5H PRN PRN Reason: for dialyzer flush PRN Sodium Chloride (Ns Inj) 1,000 mls @ 0 mls/hr IV.CONT .Q0M PRN PRN Reason: hypotension / volume replace Albumin Human (Flexbumin 25% Inj) 100 mls @ 60 mls/hr IV.SIG WITH DIALYSIS PRN PRN Reason: hypotension / volume replace Lactulose (Lactulose Liq) 30 ml PO DAILY PRN PRN Reason: SEVERE CONSITIPATION Nitroglycerin (Nitrostat Sl) 0.4 mg SL Q5M PRN PRN Reason: CHEST PAIN Ondansetron HCl (Zofran Inj) 4 mg IV.PUSH Q6H PRN PRN Reason: NAUSEA OR VOMITING Ondansetron HCl (Zofran Inj) 4 mg IV.PUSH UNSCH PRN PRN Reason: NAUSEA OR VOMITING Oxycodone/Acetaminophen (Percocet 5/325 Mg) 1 tab PO Q4H PRN PRN Reason: PAIN 1-10 Last Admin: 08/07/18 14:11 Dose: 1 tab Pantoprazole Sodium (Protonix) 40 mg PO DAILY [facility] Last Admin: 08/07/18 08:58 Dose: 40 mg Senna/Docusate Sodium (Erika-Colace) 1 tab PO BID [facility] Last Admin: 08/07/18 08:58 Dose: 1 tab Sennosides (Senokot) 17.2 mg PO Q12H PRN PRN Reason: Moderate Constipation Last Admin: 08/07/18 08:58 Dose: 17.2 mg Sodium Chloride (Ns Flush) 5 ml IV.FLUSH PRN PRN PRN Reason: flush each lumen during HD Allergies Allergy/AdvReac Type Severity Reaction Status Date / Time butorphanol Allergy Severe "NERVE Verified 05/30/18 10:33 ENDING ON FIRE" ketorolac Allergy Severe "NERVE ON Verified 05/30/18 10:33 FIRE" Home Medications Medication Instructions Recorded Confirmed Type calcium acetate mg PO TID 05/06/18 History dextroamphetamine-amphetamine mg PO BID 05/06/18 History [Adderall] furosemide [Lasix] mg PO DAILY 05/06/18 History morphine [MorphaBond ER] 30 mg PO Q12H 05/06/18 08/03/18 History oxycodone-acetaminophen [Percocet] tab PO Q6H PRN 05/06/18 History Physical Exam Vital signs: Vital Signs 08/06/18 18:45 08/06/18 20:00 08/06/18 21:01 Temperature 98.6 F Pulse Rate 68 82 Respiratory Rate 18 16 19 Blood Pressure 173/81 H Pulse Oximetry 96 98 08/07/18 00:05 08/07/18 04:43 08/07/18 08:00 Temperature 98.5 F 98.4 F 97.2 F L Pulse Rate 70 64 78 Respiratory Rate 16 16 17 Blood Pressure 159/70 H 140/65 168/70 H Pulse Oximetry 97 97 95 08/07/18 08:27 Temperature Pulse Rate 68 Respiratory Rate 17 Blood Pressure Pulse Oximetry 97 Intake & Output 08/06/18 08/07/18 08/07/18 18:59 06:59 18:59 Intake Total 800 / 800 360 / 360 Output Total 1500 / 1500 Balance 800 / 800 360 / 360 -1500 / -1500 Intake: Oral 800 / 800 360 / 360 Output: Hemodialysis Amount 1500 / 1500 Other: # Voids 1 0 Date of Last Bowel Movement 08/04/18 08/04/18 08/04/18 # Bowel Movements 0 Narrative: GENERAL: Chronically ill-appearing female in no acute distress. Awake and alert. Appears comfortable lying in bed. SKIN: Warm and dry. HEENT: Atraumatic. Normocephalic. EOMI. No scleral icterus. No injection or drainage. No nasal bleeding or discharge. Mucous membranes pink and moist. NECK: Trachea midline. CARDIOVASCULAR: Regular rate and rhythm. +murmur auscultated. RESPIRATORY: No accessory muscle use. Breath sounds equal bilaterally. Mild expiratory wheezing noted on exam. GASTROINTESTINAL: Abdomen soft, non-tender, nondistended. Hepatic and splenic margins not palpable. MUSCULOSKELETAL: Extremities without clubbing, cyanosis, or edema. No obvious deformities. NEUROLOGICAL: Awake and alert. No obvious cranial nerve deficits. Motor grossly within normal limits. Able to move all extremities spontaneously. Normal speech. PSYCHIATRIC: Calm and cooperative. - Urinary Catheter Management Straight Cath placed during this visit: no Results 08/07/18 05:06 08/07/18 05:06 Cardiac Enzymes 08/05/18 08/05/18 Range/Units 16:25 22:22 CK-MB (CK-2) 7.7 H 6.5 H (0.5-3.6) ng/mL Troponin I 0.35 H 0.31 H (0.02-0.05) ng/mL CBC 08/06/18 08/07/18 Range/Units 04:37 05:06 WBC 11.6 H 12.8 H (4.0-11.0) th/mm3 RBC 2.93 L 2.72 L (4.00-5.30) mil/mm3 Hgb 10.1 L 9.4 L (11.6-15.3) gm/dL Hct 29.7 L 28.0 L (35.0-46.0) % Plt Count 190 193 (150-450) th/mm3 Neut # (Auto) 6.7 7.8 H (1.8-7.7) th/mm3 Lymph # (Auto) 3.0 3.0 (1.0-4.8) th/mm3 [place] # (Auto) 1.5 H 1.5 H (0.0-0.9) th/mm3 Eos # (Auto) 0.3 0.5 H (0.0-0.4) th/mm3 Baso # (Auto) 0.1 0.1 (0.0-0.2) th/mm3 Comprehensive Metabolic Panel 08/05/18 08/07/18 Range/Units 22:22 05:06 Sodium 140 139 (136-145) meq/L Potassium 3.0 L 3.4 L (3.5-5.1) meq/L Chloride 102 103 (98-107) meq/L Carbon Dioxide 30.6 29.3 (21.0-32.0) meq/L BUN 17 34 H (7-18) mg/dL Creatinine 3.86 H 6.22 H (0.50-1.00) mg/dL Calcium 7.4 L* 7.4 L* (8.5-10.1) mg/dL Albumin 2.7 L 2.5 L (3.4-5.0) g/dL Intake and Output 08/07/18 08/07/18 08/07/18 06:59 14:59 22:59 Intake Total 360 / 360 Output Total 1500 / 1500 Balance 360 / 360 -1500 / -1500 Intake: Oral 360 / 360 Output: Hemodialysis Amount 1500 / 1500 Other: # Voids 0 Date of Last Bowel Movement 08/04/18 # Bowel Movements 0 - Imaging and Cardiology Imaging: Impressions Myocardial Perfusion Scan Nuc Med 08/06/18 00:00 CONCLUSION: Negative examination. Assessment and Plan - Assessment (1) Encephalopathy Code(s): G93.40 - Encephalopathy, unspecified Status: Acute (2) ESRD (end stage renal disease) on dialysis Code(s): N18.6 - End stage renal disease; Z99.2 - Dependence on renal dialysis Status: Acute (3) Rhabdomyolysis Code(s): M62.82 - Rhabdomyolysis Status: Acute (4) Elevated troponin Code(s): R74.8 - Abnormal levels of other serum enzymes Status: Acute (5) Narcotic dependence Code(s): F11.20 - Opioid dependence, uncomplicated Status: Acute (6) Noncompliance with renal dialysis Code(s): Z91.15 - Patient's noncompliance with renal dialysis Status: Acute (7) Generalized weakness Code(s): R53.1 - Weakness Status: Acute (8) Chest pain Code(s): R07.9 - Chest pain, unspecified Status: Acute - Plan 1) ESRD on HD 2) Non-compliance with HD 3) Chest pain Atypical Nuclear stress test negative for ischemia EF 55-60% 4) Ascending aortic aneurysm Previous CT showing 4.7 x 4.5cm, stable Echo showing 4.7cm Needs surveillance followup Per notes from [facility], Dr. Roper was arranging for her to follow up with Dr. Rinaldi at [facility] 5) No further cardiovascular work up necessary Will see PRN 6) Elevated troponin Most likely due to rhabdomyolysis
== END 2018-08-07 19:47 | disposition home health service (06) ==
LOC: NEPC 19:21 → NEDA 21:52 → HIMC 22:50 → N06 08-04 16:02
PROVIDERS: ADMIT Internal Medicine; ATTEND Internal Medicine